=== PATIENT | male | born 1950 | race Caucasian/White ===

== ENCOUNTER 2019-04-19 00:20 | Day surgery (SDC) | payer MEDICARE, SELFPAY ==
[2019-04-13 09:53] VITALS: BMI 24.6
[2019-04-19 08:15] VITALS: BP 135/74; PULSE 87; RESP 20; O2SAT 98; BMI 25.1
[2019-04-19 08:46] LABS: Glucose Point of Care 113 (65-105)
[2019-04-19] MEDS: LACTATED RINGERS 1,000 ML 150 ML IV CONT (08:47)
--- NOTE | 2019-04-19 08:48 | P.PNAN_ITS ---
Anes - Initial Pre Proc Eval Procedure: Operation Date: 04/19/19 09:00 Proposed Procedures p Screening Colonoscopy - Woody Turner MD Date/Time: 04/19/19 08:48 Surgeon: Woody Turner MD Pre Op Diagnosis: Neoplasm Screening Patient Data Age: 69 Gender: M Height: 1.78 m Weight: 79.5 kg Last Vital Signs Pulse 87 04/19/19 08:15 Resp 20 04/19/19 08:15 BP 135/74 04/19/19 08:15 Pulse Ox 98 04/19/19 08:15 Allergies Allergy/AdvReac Type Severity Reaction Status Date / Time shellfish derived AdvReac Mild Diarrhea Verified 04/19/19 08:26 Home Medications Medication Instructions Recorded Confirmed Type atorvastatin 40 mg PO DAILY 04/13/19 04/13/19 History insulin detemir U-100 [Levemir 10 unit SUBCUT DAILY 04/13/19 04/13/19 History FlexTouch U-100 Insuln] latanoprost 1 drp OPHTHALMIC (EYE) DAILY 04/13/19 04/13/19 History lisinopril 10 mg PO DAILY 04/13/19 04/13/19 History metformin 1,000 mg PO BID 04/13/19 04/13/19 History mirabegron [Myrbetriq] 50 mg PO DAILY 04/13/19 04/13/19 History triamterene-hydrochlorothiazid 37 tablet PO DAILY 04/13/19 04/13/19 History Laboratory Tests 04/19/19 08:38 POC Capillary Glucose 113 mg/dl H mg/dl (65-105) Patient hx anesthesia problems: none Family hx anesthesia problems: none [facility] Past Medical History Medical History (Updated 04/18/19 @ 13:36 by Eleno Dangelo DO) Diabetes type 2, controlled History of prostate cancer Hyperlipidemia Hypertension Surgical History Surgical History (Updated 04/18/19 @ 13:36 by Eleno Dangelo DO) History of prostatectomy 2017 Social History Social History Gender identity (if verbalized by the patient): Male Anes - Eval Final PreProcedure Day of Procedure 04/19/19 08:48 Patient weight: overweight Heart: regular rate and rhythm Lungs: clear to auscultation and normal air movement Airway: Mallampati scale class II Neurological: alert and oriented Last oral intake: >/= 8 hours ASA classification: III Emergent: no Anesthetic plan: proceed Anesthesia type and monitoring: general GIVS and standard monitoring Informed Consent: The patient's anesthetic plan and its attendant risks and benefits were discussed with the patient/family/POA. Questions were solicited and answers provided to the satisfaction of the patient/family/POA.
--- NOTE | 2019-04-19 08:58 | P.CONGI_ITS ---
Assessment and Plan Additional Plan This is a 69-year-old white male patient seen in evaluation at the request Dr. Stewart Holt. Patient presents for screening colonoscopy. His current weight appetite bowel movements are normal. He denies abdominal pain he denies any bleeding. His bowel habits regular. Family history noncontributory. There is no history of colon or rectal disease. Past medical history is significant for prostate cancer he has been treated for hypertension, hyperlipidemia, diabetes. History of surgical prostatectomy. Medications include atorvastatin, insulin, lisinopril, metformin, triamterene- hydrochlorothiazide. Allergies to shellfish. Review of systems: significant for poor control bowel habits. Physical exam reveals vital signs stable. HEENT exam unremarkable. He is anicteric. Lungs are clear to auscultation and percussion. Heart is without murmur or extra sounds. Abdominal exam bowel sounds are present soft nontender with no organomegaly. Digital external rectal exam normal. Impression 1. Neoplasia screening. This is advised because of age. Colonoscopy will be performed. 2. History of prostate cancer. 3. Poor control bowel habits. Plan is for fiber supplements to be given. GI Consult Note Consult date/time: 04/19/19 08:58 HPI: Bernardino Sanchez is a 69 year old male [facility] Past Medical History Medical History (Updated 04/18/19 @ 13:36 by Eleno Dangelo DO) Diabetes type 2, controlled History of prostate cancer Hyperlipidemia Hypertension Surgical History Surgical History (Updated 04/18/19 @ 13:36 by Eleno Dangelo DO) History of prostatectomy 2017 Social History Social History Gender identity (if verbalized by the patient): Male Meds Home Medications and Allergies Home Medications Medication Instructions Recorded Confirmed Type atorvastatin 40 mg PO DAILY 04/13/19 04/13/19 History insulin detemir U-100 [Levemir 10 unit SUBCUT DAILY 04/13/19 04/13/19 History FlexTouch U-100 Insuln] latanoprost 1 drp OPHTHALMIC (EYE) DAILY 04/13/19 04/13/19 History lisinopril 10 mg PO DAILY 04/13/19 04/13/19 History metformin 1,000 mg PO BID 04/13/19 04/13/19 History mirabegron [Myrbetriq] 50 mg PO DAILY 04/13/19 04/13/19 History triamterene-hydrochlorothiazid 37 tablet PO DAILY 04/13/19 04/13/19 History Allergies Allergy/AdvReac Type Severity Reaction Status Date / Time shellfish derived AdvReac Mild Diarrhea Verified 04/19/19 08:26 Vital Signs Vital Signs - 24 hr 04/19/19 08:15 Pulse Rate 87 Respiratory Rate 20 Blood Pressure 135/74 Pulse Oximetry 98
[2019-04-19 09:25] VITALS: BP 103/63; PULSE 79; RESP 25; O2SAT 100
[2019-04-19 09:31] LABS: Glucose Point of Care 119 (65-105)
[2019-04-19 09:35] VITALS: BP 120/72; PULSE 71; RESP 22; O2SAT 100
[2019-04-19 09:45] VITALS: BP 115/73; PULSE 67; RESP 17; O2SAT 100
== END 2019-04-19 09:57 | disposition home or self-care (01) ==
PROVIDERS: Visit Provider Internal Medicine Gastroenterology
PROC: 0DJD8ZZ Inspection of Lower Intestinal Tract, Via Natural or Artificial Opening Endoscopic (ICD-10-PCS; CPT 45378; principal; 2019-04-19 09:00)
DX: Z12.11 Encounter for screening for malignant neoplasm of colon (principal); K57.30 Diverticulosis of large intestine without perforation or abscess without bleeding; K64.8 Other hemorrhoids; I10 Essential (primary) hypertension; E78.5 Hyperlipidemia, unspecified; E11.9 Type 2 diabetes mellitus without complications; Z85.46 Personal history of malignant neoplasm of prostate; Z79.84 Long term (current) use of oral hypoglycemic drugs; Z79.4 Long term (current) use of insulin
CPT/HCPCS: G0121; J2704; J7120

== ENCOUNTER 2022-10-03 17:30 | Emergency (ER) | payer MEDICARE, SELFPAY ==
--- NOTE | ~2022-10-03 | CT_ITS ---
EXAMINATION: CT brain wo con INDICATION: Headache COMPARISON: None TECHNIQUE: Standard unenhanced head CT. The dose-length product (DLP) was 681.00 mGy-cm. The mA was a djusted according to patient size. Iterative reconstruction technique was employed. FINDINGS: No acute intraparenchymal hemorrhage. There is an area of low attenuation in the white luis er of the right frontal lobe. The overlying hui matter appears to be mostly intact. There is mild pe riventricular and subcortical hypodensity probably related to small vessel ischemic disease. There is mild prominence of the sulci and ventricles related to cerebral atrophy. Intracranial calcified cere bral atherosclerosis is noted. No extra-axial collections. There is no mass effect or midline shift. The orbits and soft tissues are unremarkable. The visualized sinuses and mastoid air cells are well a erated. IMPRESSION: 1. No acute intracranial abnormality. 2. Area of low attenuation in the right frontal lobe which may reflect an area of prior infarction ho wever, preservation of overlying hui matter could represent an underlying mass. Recommend correlatio n with prior clinical history. Follow-up with nonemergent MRI without and with contrast is recommende d if no history of stroke is present. Reviewed, dictated and finalized at location F. IMPRESSION: 1. No acute intracranial abnormality. 2. Area of low attenuation in the right frontal lobe which may reflect an area of prior infarction however, preservation of overlying hui matter could repres ent an underlying mass. Recommend correlation with prior clinical history. Foll ow-up with nonemergent MRI without and with contrast is recommended if no histo ry of stroke is present.
--- NOTE | ~2022-10-03 | CT_ITS ---
EXAMINATION: CT cervical spine wo con DATE: 10/03/2022 20:03 INDICATION: Head injury TECHNIQUE: Computed tomography (CT) of the cervical spine was performed without intravenous contrast. The dose-length product (DLP) was 204.74 mGy-cm. Automated exposure control and iterative reconstruc tion technique were employed. COMPARISON: None FINDINGS: Bone alignment is normal. There is no fracture. There is mild loss of intervertebral disc s pace height at C5-6. The odontoid process is intact. There is multilevel mild to moderate facet and u ncovertebral joint osteoarthritis. The prevertebral soft tissues are normal. There is a polyp or muco us retention cyst of the left maxillary sinus. IMPRESSION: 1. Mild cervical spondylosis without acute findings. Reviewed, dictated and finalized at location F.
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
[2022-10-03 17:53] VITALS: BP 116/59; PULSE 90; RESP 14; TEMP 36.8; O2SAT 97
--- NOTE | 2022-10-03 17:53 | ECG_ITS ---
Measurements Intervals Childs Rate: 87 P: 40 MD: 141 QRS: 42 QRSD: 107 T: 25 QT: 368 QTc: 444 Interpretive Statements SINUS RHYTHM INTRAVENTRICULAR CONDUCTION DELAY BORDERLINE ECG NO PREVIOUS ECG AVAILABLE FOR COMPARISON Electronically Signed On 10-04-2022 7:31:31 CDT by Ruddy Bai M.D.
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
[2022-10-03 19:09] LABS: Basophils Absolute Auto 0.1 K/mm3 (0.0-0.1); Basophils Percent Auto 0.4 % (0.2-1.2); Eosinophils Absolute Auto 0.1 K/mm3 (0-0.3); Eosinophils Percent Auto 0.4 % (0-4.4); Hematocrit 30.1 % (42.0-52.0); Hemoglobin 10.1 g/dL (14.0-18.0); Immature Granulocyte Absolute 0.17 K/mm3 (0.00-0.031); Lymphocytes Absolute Auto 4.87 K/mm3 (0.9-3.2); Lymphocytes Percent Auto 28.5 % (18.3-44.2); Mean Corpuscular HGB Conc 33.6 g/dl (32-36); Mean Corpuscular Hemoglobin 38.8 pg (26-34); Mean Corpuscular Volume 115.8 fl (80-100); Mean Platelet Volume 9.2 fl (7.4-10.4); Monocytes Absolute Auto 0.8 K/mm3 (0.1-0.6); Monocytes Percent Auto 4.4 % (2.6-8.5); Neutrophils Absolute Auto 11.2 K/mm3 (1.3-6.7); Neutrophils Percent Auto 65.3 % (45.5-73.1); Platelet Count Result 265 k/mm3 (150-375); Red Cell Distribution Width 15.5 % (11.5-14.5); White Blood Count 17.1 K/mm3 (4.5-10.0)
[2022-10-03 19:11] LABS: Appearance Urine Clear (Clear); Bilirubin Urine Negative (Negative); Blood Urine Negative (Negative); Color Urine Yellow (Yellow); Glucose Urine UA 3+ mg/dL (Negative); Ketones Urine Negative (Negative); Leukocyte Esterase Ur Negative LEU/UL (Negative); Nitrate Urine Negative (Negative); Protein Urine Negative (Negative); Urobilinogen Urine 0.2 mg/dL (<2.0)
[2022-10-03] MEDS: TETANUS,DIPHTHERIA,AC PERTUSSIS ADULT (0.5 ML) BOOSTRIX IM (19:11)
[2022-10-03 19:20] LABS: Add Urine Microscopic? NO; Ethanol 58 mg/dL (<10)
[2022-10-03 19:28] LABS: Alanine Aminotransferase 32 U/L (6-50); Albumin Level 4.1 g/dL (3.5-5.1); Alkaline Phosphatase 56 U/L (38-126); Anion Gap 8 mmol/L (8-16); Aspartate Amino Transferase 39 U/L (17-59); Bilirubin,Total 0.3 mg/dL (0.2-1.3); Blood Urea Nitrogen 49 mg/dL (9-20); Calcium 8.6 mg/dL (8.4-10.2); Carbon Dioxide 19 mmol/L (22-30); Chloride 106 mmol/L (98-107); Estimated CRCL calculation 42 ml/min; Estimated Glomerular Filt Rate 60; Glucose 131 mg/dL (65-110); Magnesium 2.3 mg/dL (1.6-2.3); Potassium 3.9 mmol/L (3.4-5.0); Sodium 133 mmol/L (137-145)
[2022-10-03 19:32] LABS: Troponin I < 0.012 ng/mL (0.000-0.034)
[2022-10-03 19:34] LABS: Creatine Kinase 157 U/L (55-170)
[2022-10-03 19:52] LABS: Macrocytosis 1+ (NORMAL); Platelet Estimate Adequate (Adequate); Poikilocytosis 1+ (NORMAL)
[2022-10-03 19:53] LABS: Schistocytes None Seen (NORMAL)
[2022-10-03 21:29] VITALS: BP 109/58; PULSE 93; RESP 16; O2SAT 98
[2022-10-03] MEDS: ONDANSETRON INJ 4 MG/2 ML VIAL IV PUSH (21:29)
[2022-10-03] MEDS: MORPHINE SULFATE (*CRX) 4 MG/ML INJ IV PUSH (21:29)
[2022-10-03 22:39] VITALS: BP 126/74; PULSE 111; RESP 15; TEMP 36.8; O2SAT 97
[2022-10-03 23:15] VITALS: BP 122/59; PULSE 110; RESP 15; O2SAT 96
[2022-10-04] VITALS: BP 113/68; PULSE 106; RESP 14; O2SAT 100
[2022-10-04 00:30] VITALS: BP 112/60; PULSE 101; RESP 16; O2SAT 100
== END 2022-10-04 01:05 | disposition short-term general hospital (02) ==
PROVIDERS: Emergency Provider Student in an Organized Health Care Education/Training Program
DX: S02.5XXA Fracture of tooth (traumatic), initial encounter for closed fracture (principal); S32.020A Wedge compression fracture of second lumbar vertebra, initial encounter for closed fracture; V87.7XXA Person injured in collision between other specified motor vehicles (traffic), initial encounter; E11.9 Type 2 diabetes mellitus without complications; Z79.4 Long term (current) use of insulin; E78.5 Hyperlipidemia, unspecified; I10 Essential (primary) hypertension; Z23 Encounter for immunization
CPT/HCPCS: 36415; 70450; 71260; 72125; 74177; 80053; 80307; 81003; 82550; 83735; 84484; 85025; 90471; 90715; 93005; 96374; 96375; 99285; J2270; J2405; Q9967

== ENCOUNTER 2022-12-03 00:22 | Day surgery (SDC) | payer MEDICARE, SELFPAY ==
[2022-11-29 15:01] VITALS: BMI 22.1
[2022-12-03 06:57] VITALS: BP 107/62; PULSE 72; RESP 18; TEMP 36.2; O2SAT 100; BMI 21.0
[2022-12-03] MEDS: LACTATED RINGERS 1,000 ML 150 ML IV CONT (07:13)
[2022-12-03 07:14] LABS: Glucose Point of Care 126 mg/dl (65-105)
--- NOTE | 2022-12-03 07:19 | SUR.PREOP ---
Patient states he did not take him a.m. Keppra and he usually takes it at 0200. Patient brought his dose with him in case he should take it prior to the procedure. Notified Dr. Sandoval and he states to have patient take his Keppra. Gave Keppra with a few sips of water.
--- NOTE | 2022-12-03 07:31 | WPDANESEPPF ---
Anes - Initial Pre Proc Eval Procedure: Operation Date: 12/03/22 08:00 Proposed Procedures p Colonoscopy - Barry Camara MD Date/Time: 12/03/22 07:31 Surgeon: Barry Camara MD Pre Op Diagnosis: Prominent ileocecal valve Patient Data Age: 72 Gender: M Height: 1.78 m Weight: 66.6 kg Last Vital Signs Temp 97.1 F L 12/03/22 06:57 Pulse 72 12/03/22 06:57 Resp 18 12/03/22 06:57 BP 107/62 12/03/22 06:57 Pulse Ox 100 12/03/22 06:57 O2 Del Method Room Air 12/03/22 06:57 Allergies Allergy/AdvReac Type Severity Reaction Status Date / Time shellfish derived AdvReac Mild Diarrhea Verified 12/03/22 06:55 Home Medications Medication Instructions Recorded Confirmed Type atorvastatin 40 mg tablet 40 mg PO DAILY 04/13/19 12/03/22 History insulin detemir U-100 100 unit/mL 10 unit subcut DAILY 04/13/19 12/03/22 History (3 mL) subcutaneous pen (Levemir FlexTouch U-100 Insulin) latanoprost 0.005 % eye drops 1 drp ophthalmic (eye) DAILY 04/13/19 12/03/22 History lisinopril 10 mg tablet 10 mg PO DAILY 04/13/19 12/03/22 History metformin 1,000 mg tablet 1,000 mg PO BID 04/13/19 12/03/22 History triamterene 37.5 37 tablet PO DAILY 04/13/19 12/03/22 History mg-hydrochlorothiazide 25 mg tablet Tylenol 500 mg PO DAILY PRN Pain 11/29/22 12/03/22 History brimonidine 0.2 %-timolol 0.5 % 1 drp EACH EYE Q12H 11/29/22 12/03/22 History eye drops calcium carbonate 600 mg calcium 600 mg PO DAILY 11/29/22 12/03/22 History (1,500 mg) tablet (Calcium) cholecalciferol (vitamin D3) 25 25 mcg PO DAILY 11/29/22 12/03/22 History mcg (1,000 unit) chewable tablet (Vitamin D3) empagliflozin 25 mg tablet 25 mg PO DAILY 11/29/22 12/03/22 History (Jardiance) folic acid 800 mcg tablet 0.8 mg PO DAILY 11/29/22 12/03/22 History levetiracetam 500 mg tablet 500 mg PO BID 11/29/22 12/03/22 History (Keppra) magnesium 420 mg PO DAILY 11/29/22 12/03/22 History mecobalamin (vitamin B12) 3,000 mg PO DAILY 11/29/22 12/03/22 History melatonin 1 mg tablet 1 mg PO HS PRN insomnia 11/29/22 12/03/22 History awmioids-mbt-FA 0.4 mg-calcium 162 1 tablet PO DAILY 11/29/22 12/03/22 History mg-iron 18 [id number]-hioesm tablet vitamin A-vitamin C-vit E-min 1 tablet PO DAILY 11/29/22 12/03/22 History tablet Laboratory Tests 12/03/22 07:11 POC Capillary Glucose 126 H mg/dl (65-105) Patient hx anesthesia problems: none Family hx anesthesia problems: none Results Review: All pre-operative results and documents have been reviewed as part of the pre-operative evaluation. [facility] Past Medical History Medical History (Updated 10/05/22 @ 00:00 by Gordy Agee) Diabetes type 2, controlled History of prostate cancer Hyperlipidemia Hypertension Surgical History Surgical History (Updated 04/18/19 @ 13:36 by Eleno Dangelo DO) History of prostatectomy 2017 Social History Social History Living arrangements: alone Gender identity (if verbalized by the patient): Male Spiritual care concerns: No Anes - Eval Final PreProcedure Day of Procedure 12/03/22 07:31 Patient weight: normal Heart: regular rate and rhythm Lungs: clear to auscultation Airway: Mallampati scale class II Neurological: alert and oriented Last oral intake: >/= 8 hours ASA classification: III Emergent: no Anesthetic plan: proceed Anesthesia type and monitoring: general GIVS and standard monitoring Results Review: All pre-operative results and documents have been reviewed as part of the pre-operative evaluation. Informed Consent: The patient's anesthetic plan and its attendant risks and benefits were discussed with the patient/family/POA. Questions were solicited and answers provided to the satisfaction of the patient/family/POA.
--- NOTE | 2022-12-03 07:55 | PM.HPGS ---
History of Present Illness History of Present Illness Consent: Risks, benefits, and alternatives have been discussed and questions answered. Patient agrees to proceed with procedure. Chief complaint: Prominent ileocecal valve Narrative: Bernardino Sanchez is a 72 year old male here for colonoscopy, last one 2021, had recent imaging study that showed prominent ICV Review of Systems Constitutional: Constitutional: Denies headache(s) and Denies weakness Eyes: Eyes: Denies blurry vision ENT: Reports Normal hearing present, Denies headache(s) and Denies neck pain Cardiovascular: Cardiovascular: Denies chest pain and Denies dyspnea Respiratory: Respiratory: Denies dyspnea Gastrointestinal: Gastrointestinal: Reports no additional gastrointestinal complaints Genitourinary: Genitourinary: Denies dysuria Musculoskeletal: Musculoskeletal: Reports back pain Integumentary/Breasts: Skin/Breast: Denies dry skin Neurologic: Reports Normal hearing present, Denies headache(s) and Denies weakness Psychiatric: Psychiatric: Denies anxiety Endocrine: Endocrine: Denies change in body appearance Hematologic/Lymphatic: Hematologic/Lymphatic: Denies easy bleeding Allergic/Immunologic: Allergic/Immunologic: Denies urticaria PMFSH Past Medical History Medical History (Updated 12/03/22 @ 07:57 by Barry Camara MD) Abnormal CT scan, colon Diabetes type 2, controlled History of prostate cancer Hyperlipidemia Hypertension Surgical History Surgical History (Updated 04/18/19 @ 13:36 by Eleno Dangelo DO) History of prostatectomy 2016 Social History Social History Living arrangements: alone Gender identity (if verbalized by the patient): Male Spiritual care concerns: No Meds Home Medications and Allergies Home Medications Medication Instructions Recorded Confirmed Type atorvastatin 40 mg tablet 40 mg PO DAILY 04/13/19 12/03/22 History insulin detemir U-100 100 unit/mL 10 unit subcut DAILY 04/13/19 12/03/22 History (3 mL) subcutaneous pen (Levemir FlexTouch U-100 Insulin) latanoprost 0.005 % eye drops 1 drp ophthalmic (eye) DAILY 04/13/19 12/03/22 History lisinopril 10 mg tablet 10 mg PO DAILY 04/13/19 12/03/22 History metformin 1,000 mg tablet 1,000 mg PO BID 04/13/19 12/03/22 History triamterene 37.5 37 tablet PO DAILY 04/13/19 12/03/22 History mg-hydrochlorothiazide 25 mg tablet Tylenol 500 mg PO DAILY PRN Pain 11/29/22 12/03/22 History brimonidine 0.2 %-timolol 0.5 % 1 drp EACH EYE Q12H 11/29/22 12/03/22 History eye drops calcium carbonate 600 mg calcium 600 mg PO DAILY 11/29/22 12/03/22 History (1,500 mg) tablet (Calcium) cholecalciferol (vitamin D3) 25 25 mcg PO DAILY 11/29/22 12/03/22 History mcg (1,000 unit) chewable tablet (Vitamin D3) empagliflozin 25 mg tablet 25 mg PO DAILY 11/29/22 12/03/22 History (Jardiance) folic acid 800 mcg tablet 0.8 mg PO DAILY 11/29/22 12/03/22 History levetiracetam 500 mg tablet 500 mg PO BID 11/29/22 12/03/22 History (Keppra) magnesium 420 mg PO DAILY 11/29/22 12/03/22 History mecobalamin (vitamin B12) 3,000 mg PO DAILY 11/29/22 12/03/22 History melatonin 1 mg tablet 1 mg PO HS PRN insomnia 11/29/22 12/03/22 History dwmhsodt-csr-EQ 0.4 mg-calcium 162 1 tablet PO DAILY 11/29/22 12/03/22 History mg-iron 18 ik-ltziupw-cqdpdo tablet vitamin A-vitamin C-vit E-min 1 tablet PO DAILY 11/29/22 12/03/22 History tablet Allergies Allergy/AdvReac Type Severity Reaction Status Date / Time shellfish derived AdvReac Mild Diarrhea Verified 12/03/22 06:55 Vital Signs Vital Signs - 24 hr 12/03/22 06:57 Temperature 97.1 F L Pulse Rate 72 Respiratory Rate 18 Blood Pressure 107/62 Pulse Oximetry 100 Oxygen Delivery Room Air Exam Const: General: comfortable and no acute distress HENMT: Face/Nose/Sinus: Normal nares present Eyes: General: appearance normal, both eyes and all related structures Neck: N
[2022-12-03 08:20] VITALS: BP 120/62; PULSE 59; RESP 21; O2SAT 100
[2022-12-03 08:30] VITALS: BP 102/58; PULSE 72; RESP 20; O2SAT 100
[2022-12-03 08:32] LABS: Glucose Point of Care 104 mg/dl (65-105)
[2022-12-03 08:40] VITALS: BP 108/56; PULSE 68; RESP 20; O2SAT 100
== END 2022-12-03 08:48 | disposition home or self-care (01) ==
PROVIDERS: Visit Provider Internal Medicine Gastroenterology
PROC: 0DJD8ZZ Inspection of Lower Intestinal Tract, Via Natural or Artificial Opening Endoscopic (ICD-10-PCS; CPT 45378; principal; 2022-12-03 08:00)
DX: K57.30 Diverticulosis of large intestine without perforation or abscess without bleeding (principal); K64.8 Other hemorrhoids; E11.9 Type 2 diabetes mellitus without complications; E78.5 Hyperlipidemia, unspecified; I10 Essential (primary) hypertension; Z79.4 Long term (current) use of insulin; Z79.84 Long term (current) use of oral hypoglycemic drugs; Z85.46 Personal history of malignant neoplasm of prostate
CPT/HCPCS: G0121; 82948; J2371; J2704; J7120

== ENCOUNTER 2023-03-13 10:26 | Emergency (ER) | payer MEDICARE, SELFPAY ==
--- NOTE | 2023-03-13 10:28 | ED.WOUNDLAC ---
HPI - Wound/Laceration General Chief Complaint: Wound/Laceration Stated Complaint: L HAND LACERATION Time Seen by Provider: 03/13/23 10:50 Source: patient and RN notes reviewed Mode of arrival: ambulatory Limitations: no limitations History of Present Illness HPI narrative: 73-year-old male presents concern for laceration to his left hand. Reports he cut it with a box sealing machine catcher prior to arrival. He denies decreased strength, sensation, range of motion in the hand digits. He is up-to-date on his tetanus vaccination Related Data Home Medications Medication Instructions Recorded Confirmed atorvastatin 40 mg tablet 40 mg PO DAILY 04/13/19 03/13/23 insulin detemir U-100 100 unit/mL 10 unit subcut DAILY 04/13/19 03/13/23 (3 mL) subcutaneous pen (Levemir FlexTouch U-100 Insulin) latanoprost 0.005 % eye drops 1 drp ophthalmic (eye) DAILY 04/13/19 03/13/23 lisinopril 10 mg tablet 10 mg PO DAILY 04/13/19 03/13/23 metformin 1,000 mg tablet 1,000 mg PO BID 04/13/19 03/13/23 triamterene 37.5 37 tablet PO DAILY 04/13/19 03/13/23 mg-hydrochlorothiazide 25 mg tablet Tylenol 500 mg PO DAILY PRN Pain 11/29/22 03/13/23 brimonidine 0.2 %-timolol 0.5 % 1 drp EACH EYE Q12H 11/29/22 03/13/23 eye drops calcium carbonate 600 mg calcium 600 mg PO DAILY 11/29/22 03/13/23 (1,500 mg) tablet (Calcium) cholecalciferol (vitamin D3) 25 25 mcg PO DAILY 11/29/22 03/13/23 mcg (1,000 unit) chewable tablet (Vitamin D3) empagliflozin 25 mg tablet 25 mg PO DAILY 11/29/22 03/13/23 (Jardiance) folic acid 800 mcg tablet 0.8 mg PO DAILY 11/29/22 03/13/23 levetiracetam 500 mg tablet 500 mg PO BID 11/29/22 03/13/23 (Keppra) magnesium 420 mg PO DAILY 11/29/22 03/13/23 mecobalamin (vitamin B12) 3,000 mg PO DAILY 11/29/22 03/13/23 melatonin 1 mg tablet 1 mg PO HS PRN insomnia 11/29/22 03/13/23 gikzliaa-sbt-XV 0.4 mg-calcium 162 1 tablet PO DAILY 11/29/22 03/13/23 mg-iron 18 aq-ohudvgo-gmhnoy tablet vitamin A-vitamin C-vit E-min 1 tablet PO DAILY 11/29/22 03/13/23 tablet Allergies Allergy/AdvReac Type Severity Reaction Status Date / Time shellfish derived AdvReac Mild Diarrhea Verified 03/13/23 10:39 Review of Systems Review of Systems: CONSTITUTIONAL: Denies malaise, chills, sweats, or fever. SKIN: Reports laceration to the left hand MUSCULOSKELETAL: Denies muscle skeletal pain NEUROLOGIC: Denies numbness, weakness All systems reviewed & are unremarkable except as noted in HPI and below PMFSH Past Medical History Medical History (Updated 03/13/23 @ 11:03 by Jannet Marx NP) Abnormal CT scan, colon Diabetes type 2, controlled History of prostate cancer Hyperlipidemia Hypertension Surgical History Surgical History (Updated 04/18/19 @ 13:36 by Eleno Dangelo DO) History of prostatectomy 2017 Social History Social History Living arrangements: alone Gender identity (if verbalized by the patient): Male Spiritual care concerns: No Comments At time of signature, agree with nursing past medical, surgical, social and family history. There is no relevant family history pertinent to the presenting complaint Exam Narrative: GENERAL: Well-appearing, well-nourished, and in no acute distress. HEAD: Normocephalic EYES: PERRLA, conjunctivae clear NECK: Supple. CHEST: Speaks in full sentences. No respiratory distress. HEART: Regular rate and rhythm. Normal and equal peripheral pulses. EXTREMITIES: Left hand and digits of hand have normal strength and sensation. 5/5 strength with digit flexion, extension. Range of motion normal. Normal digital cascade with flexion of fingers, median, ulnar and radial nerve intact. Normal sensation of each side of finger. No scissoring. Normal thumb opposition. Good capillary refill and radial pulse. Distal capillary refill less than 3 seconds. SKIN: [place], dry, intact, pink. 1 cm slightly curved laceration through the dermis noted on the palmar aspect of the left hand beneath
[2023-03-13 10:41] VITALS: BP 119/68; PULSE 64; RESP 16; TEMP 36.4; O2SAT 100
== END 2023-03-13 11:22 | disposition home or self-care (01) ==
PROVIDERS: Emergency Provider Nurse Practitioner
DX: S61.412A Laceration without foreign body of left hand, initial encounter (principal); W26.8XXA Contact with other sharp object(s), not elsewhere classified, initial encounter; Z79.4 Long term (current) use of insulin; Z79.84 Long term (current) use of oral hypoglycemic drugs; E11.9 Type 2 diabetes mellitus without complications; E78.5 Hyperlipidemia, unspecified; I10 Essential (primary) hypertension; Z85.46 Personal history of malignant neoplasm of prostate; Z90.79 Acquired absence of other genital organ(s)
CPT/HCPCS: 12001; 99212; G0463

== ENCOUNTER 2023-10-19 08:02 | Emergency (ER) | payer MEDICARE, SELFPAY ==
[2023-10-19 08:12] VITALS: BP 104/61; PULSE 85; RESP 16; TEMP 36.7; O2SAT 100
--- NOTE | 2023-10-19 08:21 | ED.WOUNDLAC ---
HPI - Wound/Laceration General Chief Complaint: Wound/Laceration Stated Complaint: L FOREARM LACERATION Time Seen by Provider: 10/19/23 08:06 Source: patient Mode of arrival: ambulatory Limitations: no limitations History of Present Illness HPI narrative: Bernardino is a 73-year-old male patient presenting to the clinic today with complaints of a skin tear to the left upper forearm/elbow. He reports this happened 2-3 days ago while he was at the [facility]. States he bumped up against a door and this caused a small skin tear with bleeding. He reports that the bleeding eventually did stop. Is concerned about infection. Tetanus was updated in 2022. Related Data Home Medications Medication Instructions Recorded Confirmed atorvastatin 40 mg tablet 40 mg PO DAILY 04/13/19 03/13/23 insulin detemir U-100 100 unit/mL 10 unit subcut DAILY 04/13/19 03/13/23 (3 mL) subcutaneous pen (Levemir FlexTouch U-100 Insulin) latanoprost 0.005 % eye drops 1 drp ophthalmic (eye) DAILY 04/13/19 03/13/23 lisinopril 10 mg tablet 10 mg PO DAILY 04/13/19 03/13/23 metformin 1,000 mg tablet 1,000 mg PO BID 04/13/19 03/13/23 triamterene 37.5 37 tablet PO DAILY 04/13/19 03/13/23 mg-hydrochlorothiazide 25 mg tablet Tylenol 500 mg PO DAILY PRN Pain 11/29/22 03/13/23 brimonidine 0.2 %-timolol 0.5 % 1 drp EACH EYE Q12H 11/29/22 03/13/23 eye drops calcium carbonate (Calcium 600) 600 mg PO DAILY 11/29/22 03/13/23 cholecalciferol (vitamin D3) 25 25 mcg PO DAILY 11/29/22 03/13/23 mcg (1,000 unit) chewable tablet (Vitamin D3) empagliflozin 25 mg tablet 25 mg PO DAILY 11/29/22 03/13/23 (Jardiance) folic acid 800 mcg tablet 0.8 mg PO DAILY 11/29/22 03/13/23 levetiracetam 500 mg tablet 500 mg PO BID 11/29/22 03/13/23 (Keppra) magnesium 420 mg PO DAILY 11/29/22 03/13/23 mecobalamin (vitamin B12) 3,000 mg PO DAILY 11/29/22 03/13/23 melatonin 1 mg tablet 1 mg PO HS PRN insomnia 11/29/22 03/13/23 xczqjivc-qpj-SN 0.4 mg-calcium 162 1 tablet PO DAILY 11/29/22 03/13/23 mg-iron 18 po-xbzwwvi-rzrbwl tablet vitamin A-vitamin C-vit E-min 1 tablet PO DAILY 11/29/22 03/13/23 tablet Allergies Allergy/AdvReac Type Severity Reaction Status Date / Time shellfish derived AdvReac Mild Diarrhea Verified 10/19/23 08:20 Review of Systems Review of Systems: Pertinent positives per HPI. Patient denies any fever, chills, rash, headache, visual changes, dizziness, cough, runny nose, sore throat, shortness of breath, chest pain, palpitations, nausea, vomiting, diarrhea, constipation, abdominal pain, or any urinary issues. [facility] Past Medical History Medical History Abnormal CT scan, colon Diabetes type 2, controlled History of prostate cancer Hyperlipidemia Hypertension Surgical History Surgical History History of prostatectomy 2017 Social History Social History Living arrangements: alone Gender identity (if verbalized by the patient): Male Spiritual care concerns: No Comments At the time of my signature, I reviewed and agree with the nursing past medical, surgical, social, and family history. There is no relevant family history pertinent to the patient complaint. Exam Narrative: General: Well-developed, well nourished, in no apparent distress Head: Normocephalic, atraumatic. Cardio: Regular rate and rhythm, s1 and s2 normal, no murmur appreciated. Resp: Clear to auscultation bilaterally, no rhonchi, rales, wheezing or rubs. Integumentary: [place], warm, and dry, skin tear with complete loss of flap measuring 2 cm in length and approximately 0.25 cm in width. No redness or erythema. Does have bruising surrounding the skin tear with mild tenderness to palpation Course Course Emergency Course: Portions of this record may have been created with voice recognition
== END 2023-10-19 08:30 | disposition home or self-care (01) ==
PROVIDERS: Emergency Provider Nurse Practitioner Family; PCP Emergency Medicine
DX: S51.012A Laceration without foreign body of left elbow, initial encounter (principal); W22.8XXA Striking against or struck by other objects, initial encounter; E11.9 Type 2 diabetes mellitus without complications; I10 Essential (primary) hypertension; E78.5 Hyperlipidemia, unspecified; Z85.46 Personal history of malignant neoplasm of prostate; Z90.79 Acquired absence of other genital organ(s)
CPT/HCPCS: 99212; G0463

== ENCOUNTER 2024-01-16 08:05 | Emergency (ER) | payer MEDICARE, SELFPAY ==
[2024-01-16 08:18] VITALS: BP 119/59; PULSE 77; RESP 18; TEMP 36.1; O2SAT 100
--- NOTE | 2024-01-16 08:30 | ED_ITS ---
HPI - Skin/Abscess/Foreign Bdy General Chief complaint: Extremity Injury, Upper Stated complaint: Injured Right Arm Time Seen by Provider: 01/16/24 08:18 Source: patient and RN notes reviewed Mode of arrival: ambulatory Limitations: no limitations History of Present Illness HPI narrative: Patient presents today with a small skin tear to the distal right forearm that was sustained yesterday when he was putting a case of water in his car. States he trimmed the skin tear after the injury. He has clean the area and dressed it prior to arrival. Up-to-date on tetanus vaccine. Related Data Home Medications Medication Instructions Recorded Confirmed atorvastatin 40 mg tablet 40 mg PO DAILY 04/13/19 01/16/24 insulin detemir U-100 100 unit/mL 10 unit subcut DAILY 04/13/19 01/16/24 (3 mL) subcutaneous pen (Levemir FlexTouch U-100 Insulin) latanoprost 0.005 % eye drops 1 drp ophthalmic (eye) DAILY 04/13/19 01/16/24 lisinopril 10 mg tablet 10 mg PO DAILY 04/13/19 01/16/24 metformin 1,000 mg tablet 1,000 mg PO BID 04/13/19 01/16/24 triamterene 37.5 37 tablet PO DAILY 04/13/19 01/16/24 mg-hydrochlorothiazide 25 mg tablet Tylenol 500 mg PO DAILY PRN Pain 11/29/22 01/16/24 brimonidine 0.2 %-timolol 0.5 % 1 drp EACH EYE Q12H 11/29/22 01/16/24 eye drops calcium carbonate (Calcium 600) 600 mg PO DAILY 11/29/22 01/16/24 cholecalciferol (vitamin D3) 25 25 mcg PO DAILY 11/29/22 01/16/24 mcg (1,000 unit) chewable tablet (Vitamin D3) empagliflozin 25 mg tablet 25 mg PO DAILY 11/29/22 01/16/24 (Jardiance) folic acid 800 mcg tablet 0.8 mg PO DAILY 11/29/22 01/16/24 levetiracetam 500 mg tablet 500 mg PO BID 11/29/22 01/16/24 (Keppra) magnesium 420 mg PO DAILY 11/29/22 01/16/24 mecobalamin (vitamin B12) 3,000 mg PO DAILY 11/29/22 01/16/24 melatonin 1 mg tablet 1 mg PO HS PRN insomnia 11/29/22 01/16/24 qeuruvef-hvy-OF 0.4 mg-calcium 162 1 tablet PO DAILY 11/29/22 01/16/24 mg-iron 18 bu-lpuosaf-jjqnha tablet vitamin A-vitamin C-vit E-min 1 tablet PO DAILY 11/29/22 01/16/24 tablet Allergies Allergy/AdvReac Type Severity Reaction Status Date / Time shellfish derived AdvReac Mild Diarrhea Verified 01/16/24 08:16 Review of Systems Review of Systems: CONSTITUTIONAL: Denies body aches, fever, chills, or sweats. EYES: Denies visual changes, redness, or discharge. ENT: Denies rhinorrhea, congestion, sore throat, or otalgia. CARDIOVASCULAR: Denies chest pain, palpitations, or edema. RESPIRATORY: Denies cough or dyspnea. GASTROINTESTINAL: Denies abdominal pain, nausea, vomiting, or diarrhea. GENITOURINARY: Denies dysuria or hematuria. SKIN:+ skin tear MUSCULOSKELETAL: Denies back pain, joint pain, or myalgia. NEUROLOGIC: Denies headache, numbness, tingling, or weakness. PSYCH: Denies depression or anxiety. [facility] Past Medical History Medical History Abnormal CT scan, colon Diabetes type 2, controlled History of prostate cancer Hyperlipidemia Hypertension Surgical History Surgical History History of prostatectomy 2016 Social History Social History Living arrangements: alone Gender identity (if verbalized by the patient): Male Spiritual care concerns: No Comments At time of signature, I have reviewed and agree with nursing past medical, surgical, social and family history unless otherwise noted. Please see nursing chart for further information. There is no relevant family history pertinent to the presenting complaint Exam Narrative: GENERAL: Well-appearing, well-nourished, and in no acute distress. HEAD: Normocephalic, atraumatic. EYES: EOMI. No redness or drainage. Conjunctivae normal. ENT: Mucous membranes pink and moist. NECK: Normal AROM. CHEST: No respiratory distress. EXTREMITIES: Normal range of motion. No edema. SKIN: Warm, dry, no rash. Capillary refill normal. Normal skin turgor. Approximately 1 x 1 cm triangular shaped very superficial skin tear to the distal right forearm. No active bleeding. No surrounding edema, erythema. Distal sensation intact. Capillary refill normal. Full range of motion. NEURO: No focal deficits. Alert and oriented x3. Gait steady. PSYCH: Normal affect. No signs of depression or anxiety. Course Course Level of Care: Express Care Visit Vital Signs Vital signs: Vital Signs Temperature 97.0 F L 01/16/24 08:18 Pulse Rate 77 01/16/24 08:18 Respiratory Rate 18 01/16/24 08:18 Blood Pressure 119/59 L 01/16/24 08:18 Pulse Oximetry 100 01/16/24 08:18 Oxygen Delivery Room Air 01/16/24 08:18 Temperature 97.0 F L 01/16/24 08:18 Pulse Rate 77 01/16/24 08:18 Respiratory Rate 18 01/16/24 08:18 Blood Pressure 119/59 L 01/16/24 08:18 Pulse Oximetry 100 01/16/24 08:18 Oxygen Delivery Room Air 01/16/24 08:18 Review MDM - Skin/Abscess/Foreign Bdy MDM Narrative Medical decision making narrative: Patient has sustained a skin tear. Dressed with nonadherent dressing. Care instructions given. Anticipatory guidance given. Differential Diagnosis Differential diagnosis: Likely cellulitis and other (Skin tear, skin avulsion) Critical Care Time Critical Care Time Critical Care Time: No Discharge Plan Discharge Clinical Impression: Skin tear of right forearm without complication Qualifiers: Encounter type: initial encounter Qualified Code(s): S51.811A - Laceration without foreign body of right forearm, initial encounter Patient Disposition: Home, Self-Care Condition: Stable Instructions: Skin Tear (ED) Additional Instructions: Please wash your skin tear area daily with soap and water. Apply Vaseline or Neosporin and keep covered until scabbed over or healed. Monitor for any signs of infection such as redness, swelling, increased pain or drainage, and see your doctor if you note any. Prescriptions: No Action atorvastatin 40 mg tablet 40 mg PO DAILY metformin 1,000 mg tablet 1,000 mg PO BID lisinopril 10 mg tablet 10 mg PO DAILY Levemir FlexTouch U100 Insulin 100 unit/mL (3 mL) insulin pen 10 unit subcut DAILY Rx Instructions: 10 unit subcutaneously triamterene-hydrochlorothiazid 37.5-25 mg tablet 37 tablet PO DAILY latanoprost 0.005 % Drops 1 drp OPHTHALMIC (EYE) DAILY levetiracetam [Keppra] 500 mg Tablet 500 mg PO BID calcium carbonate [Calcium 600] 600 mg calcium (1,500 mg) Tablet 600 mg PO DAILY folic acid 800 mcg Tablet 0.8 mg PO DAILY Ocuvite Tablet 1 tablet PO DAILY melatonin 1 mg Tablet 1 mg PO HS PRN (Reason: insomnia) Centrum 0.4-162-18 mg Tablet 1 tablet PO DAILY brimonidine-timolol 0.2-0.5 % Drops 1 drp EACH EYE Q12H cholecalciferol (vitamin D3) [Vitamin D3] 25 mcg (1,000 unit) Tablet,Chewable 25 mcg PO DAILY Jardiance 25 mg Tablet 25 mg PO DAILY Tylenol 500 mg PO DAILY PRN (Reason: Pain) magnesium 420 mg PO DAILY mecobalamin (vitamin B12) 3,000 mg PO DAILY Follow-up/Referrals: Jose Mckoy MD [Primary Care Provider] - Time of Disposition: 08:36
== END 2024-01-16 08:43 | disposition home or self-care (01) ==
PROVIDERS: Emergency Provider Nurse Practitioner; PCP Emergency Medicine
DX: S51.811A Laceration without foreign body of right forearm, initial encounter (principal); X58.XXXA Exposure to other specified factors, initial encounter; E11.9 Type 2 diabetes mellitus without complications; I10 Essential (primary) hypertension; E78.5 Hyperlipidemia, unspecified; Z85.46 Personal history of malignant neoplasm of prostate; Z90.79 Acquired absence of other genital organ(s)
CPT/HCPCS: 99212; G0463

== ENCOUNTER 2024-02-10 19:32 | Emergency (ER) | payer MEDICARE, SELFPAY ==
[2024-02-10 20:41] VITALS: BP 120/72; PULSE 101; RESP 16; TEMP 36.5; O2SAT 97
[2024-02-10 20:49] LABS: Glucose Point of Care 177 mg/dl (65-105)
[2024-02-11 02:53] VITALS: BP 95/54; PULSE 84; RESP 16; TEMP 36.4; O2SAT 100
[2024-02-11 03:55] LABS: Glucose Point of Care 185 mg/dl (65-105)
--- NOTE | 2024-02-11 07:31 | PC.NURSE ---
pt left due to wait time.
== END 2024-02-11 08:44 | disposition left against medical advice (07) ==
PROVIDERS: Emergency Provider Emergency Medicine; PCP Emergency Medicine
DX: E11.9 Type 2 diabetes mellitus without complications (principal); Z53.21 Procedure and treatment not carried out due to patient leaving prior to being seen by health care provider
CPT/HCPCS: 82948; 99199

== ENCOUNTER 2024-04-23 09:45 | Emergency (ER) | payer MEDICARE, SELFPAY ==
[2024-04-23 09:58] VITALS: BP 106/70; PULSE 119; RESP 20; TEMP 36.5; O2SAT 100
--- NOTE | 2024-04-23 10:00 | ED_ITS ---
HPI - General Adult General Chief complaint: Recheck/Abnormal Lab/Rx Stated complaint: Diabetic help Source: patient Mode of arrival: ambulatory Limitations: no limitations History of Present Illness HPI narrative: 74-year-old diabetic male presented for diabetes supplies and refill of Lantus. He states he has not been testing his blood sugar levels or taking his injectable medicine for at least 1 month. Patient says he does not want to continue with his established physician, and has not contacted them for the supplies. Patient ate toast and coffee this morning, and on arrival glucose is 391. Patient denies chest pain, n/v/d/f/c. Related Data Home Medications ?Medication ?Instructions ?Recorded ?Confirmed ?Last Taken ?Type atorvastatin 40 mg tablet 40 mg PO DAILY 04/13/19 04/23/24 04/17/19 History insulin detemir U-100 100 unit/mL 10 unit subcut DAILY 04/13/19 01/16/24 04/17/19 History (3 mL) subcutaneous pen (Levemir FlexTouch U-100 Insulin) latanoprost 0.005 % eye drops 1 drp ophthalmic (eye) DAILY 04/13/19 01/16/24 04/17/19 History lisinopril 10 mg tablet 10 mg PO DAILY 04/13/19 04/23/24 04/17/19 History metformin 1,000 mg tablet 1,000 mg PO BID 04/13/19 04/23/24 04/17/19 History triamterene 37.5 37 tablet PO DAILY 04/13/19 01/16/24 04/17/19 History mg-hydrochlorothiazide 25 mg tablet Tylenol 500 mg PO DAILY PRN Pain 11/29/22 04/23/24 Unknown History brimonidine 0.2 %-timolol 0.5 % 1 drp EACH EYE Q12H 11/29/22 01/16/24 Unknown History eye drops calcium carbonate (Calcium 600) 600 mg PO DAILY 11/29/22 01/16/24 Unknown History cholecalciferol (vitamin D3) 25 25 mcg PO DAILY 11/29/22 04/23/24 Unknown History mcg (1,000 unit) chewable tablet (Vitamin D3) empagliflozin 25 mg tablet 25 mg PO DAILY 11/29/22 01/16/24 Unknown History (Jardiance) folic acid 800 mcg tablet 0.8 mg PO DAILY 11/29/22 04/23/24 Unknown History levetiracetam 500 mg tablet 500 mg PO BID 11/29/22 01/16/24 Unknown History (Keppra) magnesium 420 mg PO DAILY 11/29/22 04/23/24 Unknown History mecobalamin (vitamin B12) 3,000 mg PO DAILY 11/29/22 04/23/24 Unknown History melatonin 1 mg tablet 1 mg PO HS PRN insomnia 11/29/22 01/16/24 Unknown History meqwkzob-iwb-RD 0.4 mg-calcium 162 1 tablet PO DAILY 11/29/22 04/23/24 Unknown History mg-iron 18 we-eenhhll-yngztf tablet vitamin A-vitamin C-vit E-min 1 tablet PO DAILY 11/29/22 04/23/24 Unknown History tablet methazolamide 50 mg tablet 50 mg PO BID 04/23/24 04/23/24 Unknown History valacyclovir 500 mg tablet 500 mg PO DAILY 04/23/24 04/23/24 Unknown History Allergies Allergy/AdvReac Type Severity Reaction Status Date / Time shellfish derived AdvReac Mild Diarrhea Verified 04/23/24 09:54 Review of Systems Review of Systems: CONSTITUTIONAL: Denies body aches, fever, chills, or sweats. EYES: Denies visual changes, redness, or discharge. ENT: Denies rhinorrhea, congestion, sore throat, or otalgia. CARDIOVASCULAR: Denies chest pain, palpitations, or edema. RESPIRATORY: Denies cough or dyspnea. GASTROINTESTINAL: Denies abdominal pain, nausea, vomiting, or diarrhea. GENITOURINARY: Denies dysuria or hematuria. SKIN: Denies rash, itching, or wounds. MUSCULOSKELETAL: Denies back pain, joint pain, or myalgia. NEUROLOGIC: Denies headache, numbness, tingling, or weakness. PSYCH: reports anxiety. All systems reviewed & are unremarkable except as noted in HPI and below PMFSH Past Medical History Medical History Abnormal CT scan, colon History of prostate cancer Diabetes type 2, controlled Hypertension Hyperlipidemia Surgical History Surgical History History of prostatectomy 2016 Social History Social History Living arrangements: alone Gender identity (if verbalized by the patient): Male Spiritual care concerns: No Comments At time of signature, I have reviewed and agree with nursing past medical, surgical, social and family history unless otherwise noted. Please see nursing chart for further information. There is no relevant family history pertinent to the presenting complaint Exam Narrative: GENERAL: Well-appearing EYES: EOMI. No redness or drainage. Conjunctivae normal. ENT: Mucous membranes pink and moist. NECK: Normal AROM. CHEST: No respiratory distress. Clear to auscultation. HEART: tachycardic and regular rhythm. Normal peripheral pulses. ABDOMEN: Soft, nontender, nondistended, normal active bowel sounds. SKIN: Warm, dry, no rash. Capillary refill normal. Normal skin turgor. NEURO: No focal deficits. Alert and oriented x3. Gait steady. PSYCH: appears anxious Course Course Emergency Course: Patient is aware of diagnosis, understands and agrees to treatment plan. Anticipatory guidance given. Patient agrees to follow-up as directed and is aware of reasons to seek care at the emergency department. Portions of this record may have been created with voice recognition software Level of Care: Express Care Visit Vital Signs Vital signs: Vital Signs Temperature 97.7 F 04/23/24 09:58 Pulse Rate 119 H 04/23/24 09:58 Respiratory Rate 20 04/23/24 09:58 Blood Pressure 106/70 04/23/24 09:58 Pulse Oximetry 100 04/23/24 09:58 Oxygen Delivery Room Air 04/23/24 09:58 Temperature 97.7 F 04/23/24 09:58 Pulse Rate 119 H 04/23/24 09:58 Respiratory Rate 20 04/23/24 09:58 Blood Pressure 106/70 04/23/24 09:58 Pulse Oximetry 100 04/23/24 09:58 Oxygen Delivery Room Air 04/23/24 09:58 Medical Decision Making MDM Narrative Medical decision making narrative: Discussed physical exam findings; BS 391. Advised at length the importance of establishing with a pcp for diabetic monitoring and supplies. Provided pt with a list of pcp's. Advised supportive measures and signs/symptoms to go to the ER. Pt is appropriate for outpt treatment and f/u. Differential Diagnosis Differential Diagnosis: diabetes, hyperglycemia, hypoglycemia Vital Signs Vital Signs: Vital Signs Temperature 97.7 F 04/23/24 09:58 Pulse Rate 119 H 04/23/24 09:58 Respiratory Rate 20 04/23/24 09:58 Blood Pressure 106/70 04/23/24 09:58 Pulse Oximetry 100 04/23/24 09:58 Oxygen Delivery Room Air 04/23/24 09:58 Temperature 97.7 F 04/23/24 09:58 Pulse Rate 119 H 04/23/24 09:58 Respiratory Rate 20 04/23/24 09:58 Blood Pressure 106/70 04/23/24 09:58 Pulse Oximetry 100 04/23/24 09:58 Oxygen Delivery Room Air 04/23/24 09:58 reviewed Lab Data Labs: Lab Results 04/23/24 Range/Units 09:59 POC Capillary Glucose 391 H (65-105) mg/dl Discharge Plan Discharge Clinical Impression: Encounter for medication refill, Hyperglycemia, Diabetes Patient Disposition: Home, Self-Care Condition: Stable Instructions: Antibiotic Form, Type 2 Diabetes in the Older Adult (ED) Additional Instructions: [facility] does not routinely refill any medications. You must establish with a primary care provider for your diabetic supplies and medications. The prescriptions may require prior authorization and may not be filled. You may be eligible for a free meter * You can call for more information on OneTouch programs * You can check your eligibility for [employer] Automatic Savings Program monitor for : --low blood sugar symptoms: Shakiness Sweating, Dizziness, Confusion, Headache, Blurred vision Seizures --high blood sugar symptoms: High blood sugar levels (above 180 mg/dL) Increased thirst Frequent urination Extreme hunger Fatigue Blurred vision Nausea and vomiting Confusion and irritability? Establish and Follow up with a primary care provider in 1 week Go to the ER for worsening symptoms or concerns Patient Language: Kinyarwanda Prescriptions: New Levemir FlexTouch U100 Insulin 100 unit/mL (3 mL) insulin pen 12 unit subcut HS Qty: 15 0RF (DME) blood-glucose meter [OneTouch Verio Reflect Meter] Misc See Rx Instructions .Route Qty: 1 0RF Rx Instructions: Check glucose level before breakfast and bedtime (DME) OneTouch Verio test strips Strip See Rx Instructions .Route Qty: 100 0RF Rx Instructions: Check blood sugar before breakfast and bedtime (DME) pen needle, diabetic 32 gauge x 5/32 needle See Rx Instructions .Route Qty: 100 0RF Rx Instructions: Check blood sugar before breakfast and bedtime No Action methazolamide 50 mg tablet 50 mg PO BID valacyclovir 500 mg tablet 500 mg PO DAILY atorvastatin 40 mg tablet 40 mg PO DAILY metformin 1,000 mg tablet 1,000 mg PO BID lisinopril 10 mg tablet 10 mg PO DAILY Levemir FlexTouch U100 Insulin 100 unit/mL (3 mL) insulin pen 10 unit subcut DAILY Rx Instructions: 10 unit subcutaneously triamterene-hydrochlorothiazid 37.5-25 mg tablet 37 tablet PO DAILY latanoprost 0.005 % Drops 1 drp OPHTHALMIC (EYE) DAILY levetiracetam [Keppra] 500 mg Tablet 500 mg PO BID calcium carbonate [Calcium 600] 600 mg calcium (1,500 mg) Tablet 600 mg PO DAILY folic acid 800 mcg Tablet 0.8 mg PO DAILY Ocuvite Tablet 1 tablet PO DAILY melatonin 1 mg Tablet 1 mg PO HS PRN (Reason: insomnia) Centrum 0.4-162-18 mg Tablet 1 tablet PO DAILY brimonidine-timolol 0.2-0.5 % Drops 1 drp EACH EYE Q12H cholecalciferol (vitamin D3) [Vitamin D3] 25 mcg (1,000 unit) Tablet,Chewable 25 mcg PO DAILY Jardiance 25 mg Tablet 25 mg PO DAILY Tylenol 500 mg PO DAILY PRN (Reason: Pain) magnesium 420 mg PO DAILY mecobalamin (vitamin B12) 3,000 mg PO DAILY Follow-up/Referrals: Jose Mckoy MD [Primary Care Provider] - Kee Arias MD [Physician] - Time of Disposition: 10:20
[2024-04-23 10:03] LABS: Glucose Point of Care 391 mg/dl (65-105)
== END 2024-04-23 10:26 | disposition home or self-care (01) ==
PROVIDERS: Emergency Provider Nurse Practitioner Family; PCP Emergency Medicine
DX: E11.9 Type 2 diabetes mellitus without complications (principal); E11.65 Type 2 diabetes mellitus with hyperglycemia; Z79.4 Long term (current) use of insulin; Z79.84 Long term (current) use of oral hypoglycemic drugs; I10 Essential (primary) hypertension; Z85.46 Personal history of malignant neoplasm of prostate; Z90.79 Acquired absence of other genital organ(s)
CPT/HCPCS: 82948; 99212; G0463

== ENCOUNTER 2024-09-05 11:26 | Emergency (ER) | payer MEDICARE, SELFPAY ==
[2024-09-05 11:37] VITALS: BP 117/64; PULSE 100; RESP 16; TEMP 36.8; O2SAT 97
--- NOTE | 2024-09-05 11:40 | ED_ITS ---
HPI - Wound/Laceration General Chief Complaint: Wound/Laceration Stated Complaint: SKIN TEARS ON BOTH ARMS Time Seen by Provider: 09/05/24 11:40 Source: patient Mode of arrival: ambulatory Limitations: no limitations History of Present Illness HPI narrative: 74-year-old male presents with Steri-Strips to bilateral forearms. Patient tripped and fell in bathroom and put arms out to catch himself. Did not hit his head. Was able to get up on his own. No other injuries. Denies neck and back pain. All systems reviewed and negative except as noted above. Related Data Home Medications ?Medication ?Instructions ?Recorded ?Confirmed ?Last Taken ?Type Tylenol 500 mg PO DAILY PRN Pain 11/29/22 09/05/24 Unknown History cholecalciferol (vitamin D3) 25 25 mcg PO DAILY 11/29/22 09/05/24 Unknown History mcg (1,000 unit) chewable tablet (Vitamin D3) magnesium 420 mg PO DAILY 11/29/22 09/05/24 Unknown History mecobalamin (vitamin B12) 3,000 mg PO DAILY 11/29/22 09/05/24 Unknown History yoeoostk-ppd-OW 0.4 mg-calcium 162 1 tablet PO DAILY 11/29/22 09/05/24 Unknown History mg-iron 18 nv-gramfdw-wzcdwf tablet Allergies Allergy/AdvReac Type Severity Reaction Status Date / Time shellfish derived AdvReac Mild Diarrhea Verified 09/05/24 11:27 Review of Systems Review of Systems: CONSTITUTIONAL: Denies fever, chills, or sweats. EYES: Denies visual changes, redness, or discharge. ENT: Denies rhinorrhea, congestion, sore throat, or otalgia. CARDIOVASCULAR: Denies chest pain, palpitations, or edema. RESPIRATORY: Denies cough or dyspnea. GASTROINTESTINAL: Denies abdominal pain, nausea, vomiting, or diarrhea. GENITOURINARY: Denies dysuria or hematuria. SKIN: Denies rash or itching. Reports skin tears to bilateral forearms MUSCULOSKELETAL: Denies back pain, joint pain, or myalgia. NEUROLOGIC: Denies headache, numbness, or weakness. PSYCHIATRIC: Denies anxiety or depression. All other systems reviewed are negative, except as documented in HPI. [facility] Past Medical History Medical History Abnormal CT scan, colon History of prostate cancer Diabetes type 2, controlled Hypertension Hyperlipidemia Surgical History Surgical History History of prostatectomy 2017 Social History Social History Living arrangements: alone Gender identity (if verbalized by the patient): Male Spiritual care concerns: No Comments At time of signature, agree with nursing past medical, surgical, social and family history. There is no relevant family history pertinent to the presenting complaint. Exam Narrative: GENERAL: This is a well-nourished, well-developed patient, in no apparent distress. HEAD: normocephalic, atraumatic. EYES: PERRL. Sclera clear/white. Vision is grossly intact. EARS: External ears normal NOSE: External nose normal NECK: Neck supple, non-tender without lymphadenopathy, masses or thyromegaly. CARDIOVASCULAR: Regular rate and rhythm without murmurs, gallops, or rubs. RESPIRATORY: Clear to auscultation. Breath sounds equal bilaterally. No wheezes, rales, or rhonchi. SKIN: warm, Dry, intact with no suspicious lesions or rash, good texture and turgor. skin tear to L forearm anterior lateral, ISTAP type I 2x1.5cm, skin tear to R forearm, anterior lateral, ISTAP type II, approx. 8x4cm NEURO: awake, alert, and oriented to person, place and time. There were no obvious focal neurologic abnormalities. EXTREMITIES: No joint tenderness, effusion, or edema noted. Course Course Level of Care: Express Care Visit Vital Signs Vital signs: Vital Signs Temperature 36.8 C 09/05/24 11:37 Pulse Rate 100 09/05/24 11:37 Respiratory Rate 16 09/05/24 11:37 Blood Pressure 117/64 09/05/24 11:37 Pulse Oximetry 97 09/05/24 11:37 Temperature 36.8 C 09/05/24 11:37 Pulse Rate 100 09/05/24 11:37 Respiratory Rate 16 09/05/24 11:37 Blood Pressure 117/64 09/05/24 11:37 Pulse Oximetry 97 09/05/24 11:37 reviewed Procedures Laceration Laceration 1: Date: 09/05/24 Time: 11:45 Site: upper extremity (L forearm) Side (If applicable): left (2 x 1.5) Description: irregular (skin tear) and clean Local Anesthetic: none ====== Skin Level ====== Skin layer closed with: steri strips ====== Subcutaneous Layer ====== ====== Muscle Layer ====== ====== Tendon Layer ====== Laceration 2: Date: 09/05/24 Time: 11:45 Site: upper extremity Side (If applicable): right (forearm) Description: irregular (skin tear 8 x 4cm) ====== Skin Level ====== Skin layer closed with: steri strips ====== Subcutaneous Layer ====== ====== Muscle Layer ====== ====== Tendon Layer ====== MDM - Wound/Laceration MDM Narrative Medical decision making narrative: skin tears to bilateral forearms repaired with steri strips. pt educated regarding care for steri strips. He is well appearing, nontoxic. no neuro deficits. ambulatory with steady gait at discharge. Differential Diagnosis Differential diagnosis: Likely laceration, abrasion, avulsion of skin and other (skin tear) Discharge Plan Discharge Clinical Impression: ISTAP type 2 skin tear of right forearm, ISTAP type 1 skin tear of left forearm, Fall on same level Patient Disposition: Home Condition: Stable Instructions: Skin Tear (ED), Skin Adhesive Strips (ED) Additional Instructions: Steri strips were used to repair the skin tears to your forearms. Keep steri strips clean and dry. Cover when showering so they do not get wet. If they become wet, pat dry with towel. Do not apply any ointments or lotions over steri strips. Let steri strips fall off on their own. Do not pull or pick at steri strips. if you have signs of infection such as redness, swelling, pain, drainage your primary care physician. Patient Language: Japanese Prescriptions: No Action Centrum 0.4-162-18 mg Tablet 1 tablet PO DAILY cholecalciferol (vitamin D3) [Vitamin D3] 25 mcg (1,000 unit) Tablet,Chewable 25 mcg PO DAILY Tylenol 500 mg PO DAILY PRN (Reason: Pain) magnesium 420 mg PO DAILY mecobalamin (vitamin B12) 3,000 mg PO DAILY Follow-up/Referrals: PHYSICIAN,SUPERVISOR SH[employer]TLE [employer]PARATION [Primary Care Provider] - Time of Disposition: 12:08
== END 2024-09-05 12:12 | disposition home or self-care (01) ==
PROVIDERS: Emergency Provider Nurse Practitioner Family
DX: S51.812A Laceration without foreign body of left forearm, initial encounter (principal); S51.811A Laceration without foreign body of right forearm, initial encounter; W01.0XXA Fall on same level from slipping, tripping and stumbling without subsequent striking against object, initial encounter; E11.9 Type 2 diabetes mellitus without complications; I10 Essential (primary) hypertension; E78.5 Hyperlipidemia, unspecified; Z85.46 Personal history of malignant neoplasm of prostate; Z90.79 Acquired absence of other genital organ(s)
CPT/HCPCS: 99212; G0463

== ENCOUNTER 2024-09-09 19:49 | Emergency (ER) | payer MEDICARE, SELFPAY ==
--- NOTE | 2024-09-09 19:58 | ED.SKABFB ---
HPI - Skin/Abscess/Foreign Bdy General Chief complaint: Skin/Abscess/Foreign Body Stated complaint: Skin tear r arm Time Seen by Provider: 09/09/24 19:50 Source: patient Mode of arrival: ambulatory Limitations: no limitations History of Present Illness HPI narrative: Bernardino is a 74-year-old male patient presenting to the clinic today requesting a dressing change to the right forearm. He was seen on September 05 for a skin tear to the right forearm and Steri-Strips were applied. Has a telfa that has dried blood stuck to the right forearm. Patient thought that it was 8am instead of 8PM. Patient reoriented and is able to tell me who the president is, where he is at, and the approximate date. Denies any other concerns. Offered further evaluation- such as blood sugar check and urine testing and he declined at this time. Related Data Home Medications ?Medication ?Instructions ?Recorded ?Confirmed ?Last Taken ?Type Tylenol 500 mg PO DAILY PRN Pain 11/29/22 09/05/24 Unknown History cholecalciferol (vitamin D3) 25 25 mcg PO DAILY 11/29/22 09/05/24 Unknown History mcg (1,000 unit) chewable tablet (Vitamin D3) magnesium 420 mg PO DAILY 11/29/22 09/05/24 Unknown History mecobalamin (vitamin B12) 3,000 mg PO DAILY 11/29/22 09/05/24 Unknown History luvhwzts-bax-TE 0.4 mg-calcium 162 1 tablet PO DAILY 11/29/22 09/05/24 Unknown History mg-iron 18 lw-lkkfiws-oskbsi tablet Allergies Allergy/AdvReac Type Severity Reaction Status Date / Time shellfish derived AdvReac Mild Diarrhea Verified 09/09/24 19:53 Review of Systems Review of Systems: Pertinent positives per HPI. Patient denies any fever, chills, rash, headache, visual changes, dizziness, cough, runny nose, sore throat, shortness of breath, chest pain, palpitations, nausea, vomiting, diarrhea, constipation, abdominal pain, or any urinary issues. [facility] Past Medical History Medical History Abnormal CT scan, colon History of prostate cancer Diabetes type 2, controlled Hypertension Hyperlipidemia Surgical History Surgical History History of prostatectomy 2017 Social History Social History Living arrangements: alone Gender identity (if verbalized by the patient): Male Spiritual care concerns: No Comments At the time of my signature, I reviewed and agree with the nursing past medical, surgical, social, and family history. There is no relevant family history pertinent to the patient complaint. Exam Narrative: General: Well-developed, well nourished, in no apparent distress Head: Normocephalic, atraumatic. Cardio: Regular rate and rhythm, s1 and s2 normal, no murmur appreciated. Resp: Clear to auscultation bilaterally, no rhonchi, rales, wheezing or rubs. Integumentary: [place], warm, and dry, healing skin tears to the right forearm-dressing was removed and new dressing with Telfa and Kerlix was applied Course Course Emergency Course: Portions of this record may have been created with voice recognition software. Level of Care: Express Care Visit Vital Signs Vital signs: Vital signs reviewed MDM - Skin/Abscess/Foreign Bdy MDM Narrative Medical decision making narrative: At the time of visit patient is resting comfortably on the exam table. Patient appears to be nontoxic. requesting a dressing change to the right forearm. He was seen on September 05 for a skin tear to the right forearm and Steri-Strips were applied. Has a telfa that has dried blood stuck to the right forearm. Patient thought that it was 8AM instead of 8PM and came in to be seen at [facility]. Patient reoriented to time and is able to tell me who the president is, where he is at, and the date was 09/10/24. States, I am retired and I don't keep track of all of that. Denies any other concerns. Offered further evaluation- such as blood sugar check and urine testing and he declined at this time. Plan: Patient here for encounter for wound check/dressing change. Wound was cleansed with normal saline and telfa dressing was reapplied. Dressing changed in the clinic today. Supportive measures were discussed with the patient and they voiced understanding discharge instructions and agrees to treatment plan. Return precautions reviewed Differential Diagnosis Differential diagnosis: Likely abscess of skin or subcutaneous tissue, cellulitis and other (Encounter for wound check/dressing change) Discharge Plan Discharge Clinical Impression: Encounter for change or removal of nonsurgical wound dressing Patient Disposition: Home Condition: Stable Instructions: Antibiotic Form, Skin Tear (ED), Skin Adhesive Strips (ED) Additional Instructions: Dressing was removed from the right forearm in the clinic today Keep area clean and dry Keep Steri-Strips in place and let them fall off on their own Complete daily dressing changes Follow-up for a wound check with your primary care doctor in 2-3 days Call tomorrow to schedule a primary care provider appointment Patient Language: Nepali Prescriptions: No Action Centrum 0.4-162-18 mg Tablet 1 tablet PO DAILY cholecalciferol (vitamin D3) [Vitamin D3] 25 mcg (1,000 unit) Tablet,Chewable 25 mcg PO DAILY Tylenol 500 mg PO DAILY PRN (Reason: Pain) magnesium 420 mg PO DAILY mecobalamin (vitamin B12) 3,000 mg PO DAILY Follow-up/Referrals: PHYSICIAN,TRAVEL SERVICE CONSULTANT [Primary Care Provider] - Time of Disposition: 20:03 Quality NIHSS Nursing Documentation ED NIHSS nursing documentation: reviewed/agree
[2024-09-09 20:10] VITALS: BP 151/75; PULSE 97; RESP 16; TEMP 36.7; O2SAT 99
== END 2024-09-09 20:15 | disposition home or self-care (01) ==
PROVIDERS: Emergency Provider Nurse Practitioner Family
DX: Z48.00 Encounter for change or removal of nonsurgical wound dressing (principal); E11.9 Type 2 diabetes mellitus without complications; I10 Essential (primary) hypertension; E78.5 Hyperlipidemia, unspecified; Z85.46 Personal history of malignant neoplasm of prostate; Z90.79 Acquired absence of other genital organ(s)
CPT/HCPCS: 99211; G0463

== ENCOUNTER 2024-09-27 09:56 | Outpatient (CLI) | payer MEDICARE, SELFPAY ==
--- NOTE | ~2024-09-27 | US_ITS ---
EXAMINATION: US venous doppler [facility] DATE: 09/27/2024 11:57 INDICATION: Swelling and pain TECHNIQUE: Grayscale ultrasound images without and with compression and Doppler ultrasound images of the left lower extremity veins were obtained. COMPARISON: None. FINDINGS: The visualized portions of left common femoral vein, profunda (deep) femoral vein, femoral vein, popl iteal vein, peroneal veins, posterior tibial veins, and greater saphenous vein outflow are patent. IMPRESSION: 1. No deep venous thrombosis. Reviewed, dictated and finalized at location A.
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
--- OUTSIDE RECORDS SUMMARY | 2024-09-27 10:10 | XMS_ITS | Clinical Summary ---
Author Organization [facility] Address [address] [place] [address] Care Team Providers Care Social Work Professor Name Role Phone Unavailable Primary Care Provider Unavailabl e Source Comments [facility],non-owned Affiliates and Associated Physician Practices is amultiple site organization consisting of ambulatory clinics and hospital sitesin [place], [place], [place] and [place]. This disclosure is being madepursuant to the Care Everywhere program and may not contain all information available regarding this patient. Last updated 17.[facility] Social History Tobacco Use Types Packs/Day Years Used Date Smoking Tobacco: Never Assessed Sex and Gender Information Value Date Recorded Sex Assigned at Not on file Legal Sex Male 8:40 AM CDT Gender Identity Not on file Sexual Orientation Not on file Plan of Treatment Health Maintenance Due Date Last Done Comments COLOGUARD (AGES 45-75) - COL ON CA SCREENING 1951 COLON MONITORING 1951 COLONOSCOPY - COLON CA SCREENING 1951 CT COLONOGRAPHY - COLON CA SCREENING 1950 Colorectal Cancer Screening 1950 FIT - COLON CA SCREENING 1950 FLEX SIG - COLON CA SCREENING 1950 LIPID TESTING 1950 MEDICARE AWV 12 MONTHS 1950 HEPATITIS C SCREENING 01/04/1969 DTAP/TDAP/TD VACCINES (1 - Tdap) 1970 PNEUMOCOCCAL VACCINE 50+ (1 of 1 - PCV) 2001 ZOSTER VACCINE (1 of 2) 2001 COVID-19 VACCINE ( - 2023-2 5 season) 2023 DEPRESSION SCREENING 02/15/2024 INFLUENZA VACCINE (#1) 2024 Respiratory Syncytial Virus (RSV) Vaccine Pt: or over 60 yrs (1 - 1-dose 75+ series) 2026 HEPATITIS B VACCINE Aged Out No longe r eligible based on patient's age to complete this topic HIB VACCINE Aged Out No longer eligi ble based on patient's age to complete this topic HPV VACCINE Aged Out No longer eligi ble based on patient's age to complete this topic MENINGOCOCCAL (Group B) VACC INE SHARED DECISION-MAKING Aged Out No longer eligibl e based on patient's age to complete this topic MENINGOCOCCAL GROUPS A/C/Y/W VACCINE Aged Out No longer eligible b ased on patient's age to complete this topic Insurance MEDICARE [facility]
--- OUTSIDE RECORDS SUMMARY | 2024-09-27 10:10 | XMS_ITS | Clinical Summary ---
Author Organization [facility] Address [address] [place] [address] Care Team Providers Care First Aid Nurse Name Role Phone MayorgaGareth corea OD Unavailable + Mary Kincaid MD Unavailable [phone] Evelio Johnston MD Unavailable Juanjo Villarreal MD Unavailable [phone] Kee Arias MD Primary Care Provider Allergies Active Allergy Reactions Criticality Noted Date Comments Shellfish Derived Diarrhea Low Medications brimonidine-timolo l (COMBIGAN) 0.2-0.5 % ophthalmic solution instill 1 drop by ophthalmic route every 12 hours into affected eye(s) 0 06/14/19 12 Active Additional Information Patient taking differently: 1 drop right eye 2 times daily, Reported on 12/22/2022 cholecalciferol (VITAMIN D3) 1,000 unit capsule once a day 0 08/23/19 12 Active multivitamin tablet tablet take 1 tablet by oral route every day with food 0 08/23/19 12 Active latanoprost (XALATAN) 0.005 % ophthalmic solution INSTILL 1 DROP INTO EACH EYE ONCE DAILY AT NIGHT DIRECTED 06/27/19 21 Active ascorbic acid (VITAMIN C) 100 mg tablet Take 1 tablet (100 mg total) by mouth daily Active lancets (Cracktouch ultrasoft) miscIndications:Ty pe 2 diabetes mellitus with other specified complication, without long-term current use of insulin Monitor FSBS TID 300 each 3 05/19/19 23 Active blood glucose diagnostic (FinarioTouch Verio test strips) stripIndications:T ype 2 diabetes mellitus with other specified complication, without long-term current use of insulin Monitor FSBS TID 300 strip 3 05/19/19 23 Active OneTouch Verio Reflect Meter miscIndications:Ty pe 2 diabetes mellitus with other specified complication, without long-term current use of insulin USE TO MONTIOR FSBS THREE TIMES A DAY 1 each 08/13/19 23 Active valACYclovir (VALTREX) 500 mg tablet Take 1 tablet (500 mg total) by mouth daily 07/24/19 23 Active pen needle, diabetic (Unifine Pentips) 32 gauge x 5/32 needleIndications: Type 2 diabetes mellitus with other specified complication, with long-term current use of insulin Use once daily with insulin pen 100 each 3 10/01/19 23 Active acetaminophen (TYLENOL) 500 mg tablet Take 2 tablets (1,000 mg total) by mouth every 6 (six) hours as needed 10/10/19 23 Active brimonidine (ALPHAGAN) 0.2 % ophthalmic solution Administer 1 drop into affected eye(s) every 12 (twelve) hours Active Jardiance 25 mg tabletIndications: Type 2 diabetes mellitus with other specified complication, with long-term current use of insulin Take 1 tablet by mouth once daily 90 tablet 02/25/19 24 Active lisinopriL (PRINIVIL,ZESTRIL) 10 mg tabletIndications: Essential hypertension Take 1 tablet by mouth once daily 90 tablet 02/25/19 24 Active atorvastatin (LIPITOR) 40 mg tabletIndications: Hyperlipidemia, unspecified hyperlipidemia type Take 1 tablet by mouth once daily 90 tablet 02/25/19 24 Active metFORMIN (GLUCOPHAGE) 1,000 mg tabletIndications: Type 2 diabetes mellitus without complication, without long-term current use of insulin (HCC) TAKE 1 TABLET BY MOUTH TWICE DAILY WITH MEALS 180 tablet 03/31/19 24 Active LANTUS 100 unit/mL (3 mL) pen for injectionIndicatio ns:Type 2 diabetes mellitus with other specified complication, without long-term current use of insulin INJECT 10 UNITS SUBCUTANEOUSLY ONCE DAILY 15 mL 05/09/19 24 Active levETIRAcetam (KEPPRA) 500 mg tablet Take 1 tablet by mouth twice daily 60 tablet 11/21/19 24 Active Active Problems Problem Noted Date Diagnosed Date Cerebral gliosis 11/18/2022 Assessment & Plan (11/18/2022 7:52 AM CDT): Right frontal cortical based lesion, unchanged since October 2014. Recently seen on outside head CT and brain MRI. Neurology saw patient and felt this was benign given technical support consultant stability. Prominent ileocecal valve 11/18/2022 Assessment & Plan (11/18/2022 2:49 PM CDT): Recent PET scab at [facility] noted suspicious uptake in region of ileocecal [...] degenerative disc and joint disease as detailed [id number] above, with associated severe spinal canal stenosis [...] T2, N0, cM0, PSA: 10 to 19, Scott 7 - Signed by Evelio Johnston MD on 12/16/2020 Assessment & Plan (05/18/2022 10:44 AM CDT): He recently completed XRT. PSA undetectable. Followed by [facility]. Assessment & Plan (05/13/2021 10:41 AM CDT): [...] would like to re-establish with Urology at [facility]. Glaucoma 07/26/2013 Overview (05/20/2016): Glaucoma Hyperlipidemia [...] insulin. 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 Continue current [...] be reassessed at the next regular appointment. Immunizations Immunization Administration Dates Next Due Influenza, Quadrivalent, Hig h Dose, Preservative Free, Intrr 11/18/2022,11/14/2020 Influenza, Trivalent, Preser vative Free, Intramuscular 05/17/2016,11/14/2014,10/15/2014 Influenza, Unspecified 11/12/2021,11/14/2020 Pfizer SARS-CoV-2 Monovalent Vaccination (12+ Yrs) PURPLE 01/10/2021,05/08/2020,04/17/2020 Pneumococcal Conjugate PCV 13 11/14/2020 Pneumococcal Conjugate, Unspecified 11/14/2020 Tdap 10/03/2022,05/14/2021 ZOSTER Recombinant 11/03/2020,08/08/2020 Surgical History Surgery Date Site/Laterality Comments INGUINAL HERNIA REPAIR Left PROSTATECTOMY 02/15/2016 - 02/13/2017 Medical History Medical History Date Comments Erectile dysfunction Glaucoma Anxiety Prostate cancer (HCC) Diverticulosis Family History Medical History Relation Name Comments Diabetes type II Brother Alcohol abuse Father Diabetes Father Diabetes type II Mother ESRD Mother Relation Name Status Comments Brother Father Mother Other brother Alive Social History Tobacco Use Types Packs/Day Years Used Date Smoking Tobacco: Never Smokeless Tobacco: Never Tobacco Cessation:Counseling Given: No Alcohol Use Standard Drinks/Week Comments Yes 0 (1 standard drink = 0.6 oz pur e alcohol) AUDIT-C Answer Date Recorded Q1: How often do you have a drink containing alc ohol? 2-3 times a week 01/03/2023 Q2: How many drinks containi ng alcohol do you have on a typical day when you are drinking? 1 or 2 01/03/2023 Q3: How often do you have si x or more drinks on one occasion? 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 Gender Identity Male 12/18/2020 5:15 AM CDT Sexual Orientation Hauser 08/02/2020 3: 10 PM CDT Obstetrics History Last Filed Vital Signs Vital Sign Reading Time Taken Comments Blood Pressure 109/68 06/29/2023 10:17 AM CDT Pulse 86 06/29/2023 10:17 AM CDT Temperature 36.2 C (97.2 F) 06/29/2023 10:15 AM CDT Respiratory Rate 18 06/29/2023 10:17 AM CDT Oxygen Saturation 98% 06/29/2023 10:17 AM CDT Inhaled Oxygen Concentration - - Weight 74 kg (163 lb 3.2 oz) 06/29/2023 10:15 AM CDT Height 176.5 cm (5' 9.49) 06/29/2023 10:15 AM C DT Body Mass Index 23.76 06/29/2023 10:15 AM CDT Plan of Treatment Scheduled Procedures Name Priority Associated Diagnoses Date/Ti me COLONOSCOPY Prominent ileocecal valve Health Maintenance Due Date Last Done Comments Dilated Eye Exam 1950 Hepatitis B Screening 1968 Pneumococcal vaccine 65+ (2 of 2 - PPSV23, PCV20, or PCV21) 2021 11/14/2020, 11/14/2020 Hemoglobin A1C 02/23/2023 08/23/2022, 05/2022, 02/23/2022, Additional history exists Albumin Creatinine Ratio, Urine 05/19/2023 , 05/20/2020 Depression Screening 05/19/2023 05/18/2022, 05/13/2021, 05/06/2020 Fall Risk Assessment 05/19/2023 05/18/2022, 05/13/2021, 05/06/2020 Foot Exam 05/19/2023 05/18/2022, 04/16, 05/06/2020 Lipid Panel 05/19/2023 05/18/2022, 040 07/2020, 05/15/2014, Additional history exists Well Visit 65+ 05/19/2023 05/18/2022, 04/16, 05/06/2020 Covid-19 Vaccine (2023-2 5 season) 2023 01/10/2021, 05/08/2020, 04/17/2020 eGFR 06/28/2024 06/29/2023, 1109/2022, 06/09/2022, Additional history exists Influenza Vaccine (#1) 2024 , 11/12/2021, 11/14/2020, Additional history exists DTaP/Tdap/Td Vaccine (3 - Td or Tdap) 10/03/2032 10/03/2022, 05/14/2021 Colon Cancer Screening-Colonoscopy 12/03/2032 12/03/2022, 04/19/2019 Hepatitis C Screening Completed 05/20/2020 Zoster Vaccine Completed 11/03/2020, 08/08/2020 Prostate Cancer Screening-PSA Discontinued , 05/11/2021, 09/22/2020, Additional history exists Abdominal Aortic Aneurysm (A AA) Screen Completed 10/05/2022, 07/03/2020, 03/08/2016 Colon Cancer Screening-CT Colonography Discontinued 12/03/2022, 04/19/2019 Colon Cancer Screening-DNA Stool Discontinued 12/04/19, 04/19/2019 Colon Cancer Screening-FIT Discontinued 12/03/2022, Colon Cancer Screening-Sigmoidoscopy Discontinued 12/03/2022, 04/19/2019 Procedures Procedure Name Priority Date/Time Associated Diagnosis Comments EGFR Routine 06/29/2023 10:02 AM CDT Macrocytic anemia HM COLONOSCOPY Routine 12/03/2022 POCT HEMOGLOBIN A1C Routine 08/23/2022 1:20 PM CDT Type 2 diabetes mellitus with other specified complication, with long-term current use of insulin (HCC) LIPID PANEL Routine 05/18/2022 11:15 AM CDT Primary hypertension Type 2 diabetes mellitus with other specified complication, without long-term current use of insulin (HCC) Pure hypercholesterolemia ALBUMIN CREATININE RATIO, URINE Routine 05/18/2022 11:15 AM CDT Type 2 diabetes mellitus with other specified complication, without long-term current use of insulin (HCC) PSA DIAGNOSTIC Routine 09/02/2021 10:46 AM CDT Malignant neoplasm of prostate (HCC) CT ABDOMEN PELVIS W CONTRAST Schedule Routine, Read Routine (OP Routine) 07/03/2020 10:25 AM CDT Malignant neoplasm of prostate (HCC) HEPATITIS C ANTIBODY Routine 05/20/2020 7:37 AM CDT Need for hepatitis C screening test from Last 3 Months or Most Recently Relevant to Health Maintenance Results * eGFR (06/29/2023 10:02 AM CDT) eGFR >90 >=60 mL/min/1. 73 m2 Comment: Interpretive Data Reference Interval Normal >/= 90 mL/min/1.73m2 Mildly decreased* 60 - 89 mL/min/1.73m2 Mildly to moderately decreased 45 - 59 mL/min/1.73m2 Moderately to severely decreased 30 - 44 mL/min/1.73m2 Severely decreased 15 - 29 mL/min/1.73m2 Kidney Failure < 15 mL/min/1.73m2 *Relative to young adult level Estimated glomerular filtration rate is determined by the 2020 CKD-EPI equation recommended by the National Kidney Foundation (A Unifying Approach to GFR Estimation: Recommendations of the NKF-ASK Task Force on Reassessing the Inclusion of Race in Diagnosing Kidney Disease, JASN 2020). The CKD-EPI equation should not be used for patients with unstable renal function and has not been validated in children and those over 70. Current interpretive data was last reviewed 2020. Testing performed by: [facility], [address] [place] [id number] Blood 06/29/2023 10:0 2 AM CDT 06/29/2023 10:04 AM CDT us Mary Kincaid MD LAB BLOOD ORDERABLES Final R esult [facility] [place] [address] * COLONOSCOPY (12/03/2022) Scribed Colonoscopy Normal Impressions Manuel Delgado MD - 12/03/2022 Benign. Diverticulosis and hemorroids us Historical Provider HEALTH MAINTENANCE Final Result * POCT hemoglobin A1c (08/23/2022 1:20 PM CDT) Hemoglobin A1C, POC 6.0 % Blood 08/23/2022 1:20 PM CDT Manuel Delgado MD POINT OF CARE TEST ORDERA BLES Final Result * Albumin Creatinine Ratio, Urine (05/18/2022 11:15 AM CDT) Albumin Ur <12.0 mg/L [facility] Comment: Interpretive Data No reference range established. Current interpretive data was last revised 2018. Creatinine Ur 117.8 mg/dL [facility] Comment: Interpretive Data No reference range established. Current interpretive data was last revised 2018. Albumin Creatinine Ratio, Ur <10 1 - 29 mg/g [facility] Urine 05/18/2022 11:1 5 AM CDT 05/18/2022 1:30 PM CDT Manuel Delgado MD LAB URINE ORDERABLES Agnes l Result [facility] [place] [address] * Lipid panel (05/18/2022 11:15 AM CDT) Cholesterol 156 30 - 199 mg/dL [facility] Comment: Interpretive Data Ages < or = 19 years Acceptable: <170 mg/dL Borderline high: 170-199 mg/dL High: >or= 200 mg/dL Ages > or = 20 years Desirable: <200 mg/dL Borderline high: 200-239 mg/dL High: >or= 240 mg/dL Literature References: 1. Expert Panel on Integrated Guidelines for Cardiovascular Health and Risk Reduction in Children and Adolescents. Pediatrics 2011;128:S213 2. NCEP Expert Panel. Circulation 2004;110:227 Current Interpretive Data was last revised on 2017. Triglycerides 101 <=149 mg/dL [facility] Comment: Interpretive Data Ages < or = 9 years Acceptable: <75 mg/dL Borderline high: 75-99 mg/dL High: >or= 100 mg/dL Ages 10 to 20 years Acceptable: <90 mg/dL Borderline high: 90-129 mg/dL High: >or= 130 mg/dL Ages > or = 20 years Desirable: <150 mg/dL Borderline high: 150-199 mg/dL High: 200-499 mg/dL Very high: >or= 499 mg/dL Literature References: 1. Expert Panel on Integrated Guidelines for Cardiovascular Health and Risk Reduction in Children and Adolescents. Pediatrics 2011;128:S213 2. NCEP Expert Panel. Circulation 2004;110:227 Current Interpretive Data was last revised on 2017. HDL 54 >=40 mg/dL [facility] Comment: Interpretive Data Ages < or = 19 years Acceptable: >45 mg/dL Borderline low: 40-45 mg/dL Low: <40 mg/dL Ages > or = 20 years Desirable: >or= 60 mg/dL Low: <40 mg/dL Literature References: 1. Expert Panel on Integrated Guidelines for Cardiovascular Health and Risk Reduction in Children and Adolescents. Pediatrics 2011;128:S213 2. NCEP Expert Panel. Circulation 2004;110:227 Current Interpretive Data was last revised on 2017. LDL, calculated 82 <=129 mg/dL [facility] Comment: Interpretive Data Ages < or = 19 years Acceptable: <110 mg/dL Borderline high: 110-129 mg/dL High: >or= 130 mg/dL Ages > or = 20 years Optimal: <100 mg/dL Near optimal: 100-129 mg/dL Borderline high: 130-159 mg/dL High: >160 mg/dL Literature References: 1. Expert Panel on Integrated Guidelines for Cardiovascular Health and Risk Reduction in Children and Adolescents. Pediatrics 2011;128:S213 2. NCEP Expert Panel. Circulation 2004;110:227 Current Interpretive Data was last revised on 2017. Non-HDL Cholesterol 102 mg/dL [facility] Comment: Interpretive Data Ages < or = 19 years Acceptable: <120 mg/dL Borderline high: 120-144 mg/dL High: >145 mg/dL Ages > or = 20 years When triglycerides are >200 mg/dL, Non-HDL cholesterol is a secondary target of therapy with treatment goals that are 30 mg/dL greater than the LDL cholesterol target. Literature References: 1. Expert Panel on Integrated Guidelines for Cardiovascular Health and Risk Reduction in Children and Adolescents. Pediatrics 2011;128:S213 2. NCEP Expert Panel. Circulation 2004;110:227 Current Interpretive Data was last revised on 2017. Chol/HDL ratio 3 [facility] Blood 05/18/2022 11:1 5 AM CDT 05/18/2022 1:31 PM CDT Manuel Delgado MD LAB BLOOD ORDERABLES Agnes l Result Performing Organization Address City/[facility] Co de Phone Number [facility] [place] [address] * PSA diagnostic (09/02/2021 10:46 AM CDT) PSA-Total <0.01 <=6.20 ng/mL [facility] Comment: Interpretive Data AGE SEX REFERENCE INTERVAL 0 minutes-150 years Female None 0 minutes-49 years Male None 50-59 years Male 0-3.90 60-69 years Male 0-5.40 70-79 years Male 0-6.20 80-150 years Male 0-6.20 The [employer] PSA Total assay procedure was used. Results from different manufacturers or methods may not be comparable. Serial testing should be performed using the same method. Current interpretive data last revised 21. Blood 09/02/2021 10:4 6 AM CDT 09/02/2021 2:19 PM CDT Sharon Hare NP LAB BLOOD ORDERABLES Final Result Performing Organization Address [facility] Co de Phone Number [facility] [id number] [place] [address] * CT Abdomen Pelvis W Contrast (07/03/2020 10:25 AM CDT) Anatomical Region Laterality Modality Body N/A Computed Tomogra phy 07/03/2020 11:5 6 AM CDT Impressions 07/03/2020 1:[address] evidence of metastatic disease in the abdomen or pelvis. Dictated by: Tayler Orr M.D. The radiology attending physician has personally reviewed this study, and had reviewed and/or edited this written report and agrees with it. Electronically signed by: Walt Rhodes M.D. Narrative 07/03/2020 1:28 PM CDT EXAMINATION: Computed tomography of the abdomen and pelvis with intravenous contrast HISTORY: Prostate cancer TECHNIQUE: Transaxial computed tomographic images of the abdomen and pelvis were obtained with intravenous contrast according to the standard protocol after the uneventful administration of 100 mL Opti-Ray 350 intravenous contrast. COMPARISON: 03/08/2016 CT abdomen pelvis FINDINGS: Respiratory motion in the lung bases. No suspicious pulmonary nodules in the visualized lung bases. No pleural effusion or pneumothorax. Visualized heart is of normal size without pericardial effusion. No focal hepatic lesions identified, given patient motion in the upper abdomen. The gallbladder, pancreas, spleen and bilateral adrenal glands are normal. The kidneys enhance symmetrically. No hydronephrosis. The urinary bladder is decompressed. The prostate gland is surgically absent. Postoperative changes of left inguinal hernia. The small and large bowel are normal in course and caliber. Colonic diverticulosis. No bowel obstruction. No free fluid or free air within the abdomen or pelvis. The abdominal aorta is mildly atherosclerotic but nonaneurysmal. No lymphadenopathy within the abdomen or pelvis. No suspicious lytic or blastic osseous lesions. Procedure Note Walt Rhodes MD - 07/03/2020 EXAMINATION: Computed tomography of the abdomen and pelvis with intravenous contrast HISTORY: Prostate cancer TECHNIQUE: Transaxial computed tomographic images of the abdomen and pelvis were obtained with intravenous contrast according to the standard protocol after the uneventful administration of 100 mL Opti-Ray 350 intravenous contrast. COMPARISON: 03/08/2016 CT abdomen pelvis FINDINGS: Respiratory motion in the lung bases. No suspicious pulmonary nodules in the visualized lung bases. No pleural effusion or pneumothorax. Visualized heart is of normal size without pericardial effusion. No focal hepatic lesions identified, given patient motion in the upper abdomen. The gallbladder, pancreas, spleen and bilateral adrenal glands are normal. The kidneys enhance symmetrically. No hydronephrosis. The urinary bladder is decompressed. The prostate gland is surgically absent. Postoperative changes of left inguinal hernia. The small and large bowel are normal in course and caliber. Colonic diverticulosis. No bowel obstruction. No free fluid or free air within the abdomen or pelvis. The abdominal aorta is mildly atherosclerotic but nonaneurysmal. No lymphadenopathy within the abdomen or pelvis. No suspicious lytic or blastic osseous lesions. IMPRESSION: No CT evidence of metastatic disease in the abdomen or pelvis. Dictated by: Tayler Orr M.D. The radiology attending physician has personally reviewed this study, and had reviewed and/or edited this written report and agrees with it. Electronically signed by: Walt Rhodes M.D. us José Miguel Lucas MD IMG CT PROCEDURES Final Resul t * Hepatitis C antibody (05/20/2020 7:37 AM CDT) Hep C Ab NON-REACTI VE NON-REACT STEPHENIE [facility] SIGNAL TO CUT-OFF 0.01 <1.00 [facility] Comment: HCV antibody was non-reactive. There is no laboratory evidence of HCV infection. In most cases, no further action is required. However, if recent HCV exposure is suspected, a test for HCV RNA (test code 09374) is suggested. For additional information please refer to http://education.Orugga.Sitefly/faq/IDH30d3 (This link is being provided for informational/ educational purposes only.) Blood specimen (specimen) 05/20/2020 7:37 AM CDT 05/20/2020 7:38 AM CDT Narrative [facility] - 05/21/2020 12:41 PM CDT FASTING:YES FASTING: YES us Manuel Delgado MD LAB MICROBIOLOGY - GENERA L ORDERABLES Final Result [facility] [id number] [place] [id number] from Last 3 Months or Most Recently Relevant to Health Maintenance Insurance MEDICARE [facility] Member Subscriber Plan / Payer (Ef fective 2020-) Name:Bernardino Sanchez Relation to Subscriber:Self Name:Bernardino Sanchez Payer ID:[id number] Group ID:Not on file Type:COMMERCIAL Address: [address] [place] [id number] MEDICARE [facility] MEDICARE [facility] MEDICARE [facility] Care Teams First Aid Nurse Relationship Specialty Start Date End Date Kee Arias MD [address] [facility] [address] [place] [address] PCP - General Emergency Medicine 05/09/24 Gareth Mayorga OD [address] [place] [address] Optometry 05/13/21 Mary Kincaid MD [address] [place] [address] Medical Oncologist/Skinning Machine Feeder Hematology and Oncology 11/17/21 Evelio Johnston MD [address] [place] [address] Radiation Oncologist Radiation Oncology 05/18/22 Juanjo Villarreal MD [address] [place] [address] Orthopedic Surgery 11/18/22
--- OUTSIDE RECORDS SUMMARY | 2024-09-27 10:10 | XMS_ITS | Encounter Summary ---
Author Organization [facility] Address [address] [place] [address] Care Team Providers Care Hub Inventory Specialist Name Role Phone Unavailable Primary Care Provider Unavailabl e Encounter Details Date Type Department Care Team (Late st Contact Info) Description 05/25/2023 Lab Requisition [facility] - DermPath Lab [address] [place] [address] Nicole Olivo MD [address] [facility] [address] [place] [address] Social History Tobacco Use Types Packs/Day Years Used Date Smoking Tobacco: Never Assessed Sex and Gender Information Value Date Recorded Sex Assigned at Not on file Legal Sex Male 8:40 AM CDT Gender Identity Not on file Sexual Orientation Not on file documented as of this encounter Plan of Treatment Not on file documented as of this encounter Procedures Procedure Name Priority Date/Time Associated Diagnosis Comments DERMATOPATHOLOGY Routine 05/25/2023 8:24 AM CDT documented in this encounter Results * DERMATOPATHOLOGY (05/25/2023 8:24 AM CDT) Case Report Dermatopathology Report Case: [id number] Authorizing Provider: Nicole Olivo MD Collected: 05/25/2023 08:24 AM Ordering Location: [facility] - Received: 05/26/2023 08:10 AM DermPath Lab Pathologist: Kristen Helton MD Specimen: Skin, right lower neck 12:55 PM CDT DERMATOPATHOLOGY LABORATORY Final Diagnosis Specimen A. 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 The specimen consists of a shave biopsy measuring 5x8x1 mm. Jar 0. 12:55 PM CDT DERMATOPATHOLOGY LABORATORY Microscopic Description Specimen A. SKIN, right lower neck: The epidermis shows parakeratosis, full thickness disorderly maturation of keratinocytes, mitoses at different levels, and dyskeratotic cells. 12:55 PM CDT DERMATOPATHOLOGY LABORATORY Disclaimer An external and internal positive and negative controls are appropriate for the histochemical, immunohistochemical and immunofluorescence stain(s) in this case (if any), except where stated explicitly. The performance characteristics of the stain(s) cited in this report were developed and its performance characteristic determined by the Dermatopathology Laboratory at [facility], directed by Dr. Marilyn Trinidad. These tests need not be, and therefore are not, approved by the [place] Food and Drug Administration. The tests are used for clinical purposes. Billing Codes Specimen Charges Stain Charges 58779 1 12:55 PM CDT DERMATOPATHOLOGY LABORATORY Embedded Images 12:55 PM CDT DERMATOPATHOLOGY LABORATORY Pathology/Cytolo gy TISSUE SPECIMEN FROM SKIN / Unknown 05/25/2023 8:24 AM CDT 05/26/2023 8:10 AM CDT Nicole Olivo MD LAB - PATHOLOGY/CYTOLOGY OR DERABLES Final Result DERMATOPATHOLOGY LABORATORY [facility] - Department of Dermatology [address] [place] [address], [facility] [phone] documented in this encounter Visit Diagnoses Not on filedocumented in this encounter
[2024-09-27 10:26] LABS: Hematocrit 32.1 % (42.0-52.0); Hemoglobin 10.5 g/dL (14.0-18.0); Mean Corpuscular HGB Conc 32.7 g/dl (32-36); Mean Corpuscular Hemoglobin 37.6 pg (26-34); Mean Corpuscular Volume 115.1 fl (80-100); Platelet Count Result 298 k/mm3 (150-375); Red Blood Count 2.79 M/mm3 (4.6-6.20); White Blood Count 5.1 K/mm3 (4.5-10.0)
[2024-09-27 10:51] LABS: MALB Creatinine Ratio 74.3 mg/g (0-30)
[2024-09-27 10:56] LABS: Cholesterol 245 mg/dL (0-200); HDL Direct 69 mg/dL; Triglycerides 109 mg/dL (<150)
[2024-09-27 15:05] LABS: Hemoglobin A1C > 14.0 % (<5.7)
[2024-09-27 15:53] LABS: Vitamin B12 902.0 pg/mL (239-931)
== END 2024-09-27 09:57 | disposition home or self-care (01) ==
PROVIDERS: PCP Emergency Medicine; Visit Provider Emergency Medicine
DX: R22.42 Localized swelling, mass and lump, left lower limb (principal); D64.9 Anemia, unspecified; E11.9 Type 2 diabetes mellitus without complications; E78.5 Hyperlipidemia, unspecified; Z85.46 Personal history of malignant neoplasm of prostate
CPT/HCPCS: 36415; 80061; 82043; 82607; 82746; 83036; 85027; 93971

== ENCOUNTER 2024-11-06 06:02 | Emergency (ER) | payer MEDICARE, SELFPAY ==
--- NOTE | ~2024-11-06 | CT_ITS ---
CT HEAD NON-CONTRAST Clinical History: increased confusion,pt going through radiation 4 prostate ca Comparison: CT brain 10/03/2022 Technique: Unenhanced axial images skull base to vertex Coronal, sagittal reformats CT images acquired with automatic exposure control for dose reduction DLP: 605 mGy-cm Findings: Mild atrophy. Right frontal encephalomalacia. Mild white matter changes, typically chronic microvascular ischemic disease. Sulci, ventricles: Unremarkable. No intracerebral hemorrhage. No evidence acute territorial infarct. No mass effect, midline shift. Bony calvarium intact. Visualized paranasal sinuses: Clear. Mastoid air cells: Clear. IMPRESSION: 1. No acute intracranial findings. Reviewed, dictated and finalized at location R.
[2024-11-06 06:03] VITALS: BP 165/78; PULSE 77; RESP 17; TEMP 36.8; O2SAT 100
[2024-11-06 06:09] VITALS: BP 165/78; PULSE 80; PULSE 81; RESP 14; TEMP 36.9; O2SAT 100
--- NOTE | 2024-11-06 06:13 | ECG_ITS ---
Test Date: 2024-11-06 06:15:27 Measurements Intervals [place] Rate: 71 P: 45 MT: 128 QRS: 42 QRSD: 104 T: 46 QT: 399 QTc: 434 Interpretive Statements SINUS RHYTHM NORMAL ELECTROCARDIOGRAM No previous ECG available for comparison Electronically Signed On 11-06-2024 12:31:24 CDT by Ruddy Bai M.D.
[2024-11-06 06:33] VITALS: O2SAT 100
[2024-11-06 06:35] LABS: Hematocrit 31.9 % (42.0-52.0); Hemoglobin 10.6 g/dL (14.0-18.0); Immature Granulocyte Percent A 0.9 % (0-0.5); Lymphocytes Absolute Auto 2.61 K/mm3 (0.9-3.2); Mean Corpuscular HGB Conc 33.2 g/dl (32-36); Mean Corpuscular Hemoglobin 37.9 pg (26-34); Mean Corpuscular Volume 113.9 fl (80-100); Nucleated Red Blood Cells Absolute Auto 0.000 K/mm3 (0.0-0.012); Nucleated Red Blood Cells Perc 0.0 % (0.0-0.2); Platelet Count Result 266 k/mm3 (150-375); Red Blood Count 2.80 M/mm3 (4.6-6.20); White Blood Count 4.5 K/mm3 (4.5-10.0)
[2024-11-06 06:37] LABS: Add Urine Microscopic? NO; Appearance Urine Clear (Clear); Glucose Urine UA 3+ mg/dL (Negative); Leukocyte Esterase Ur Negative LEU/UL (Negative); Nitrate Urine Negative (Negative); Specific Grav Ur 1.043 (1.001-1.035)
[2024-11-06 06:49] LABS: INR 1.0; Prothrombin Time 13.1 Seconds (11.1-14.7)
[2024-11-06 06:50] LABS: Partial Thromboplastin Time 24.0 Seconds (22.3-36.8)
[2024-11-06 07:07] LABS: Alanine Aminotransferase 19 U/L (6-50); Albumin Level 4.1 g/dL (3.5-5.1); Alkaline Phosphatase 97 U/L (38-126); Anion Gap 7 mmol/L (4-12); Aspartate Amino Transferase 26 U/L (17-59); Bilirubin,Total 0.7 mg/dL (0.2-1.3); Blood Urea Nitrogen 19 mg/dL (9-20); Calcium 8.8 mg/dL (8.4-10.2); Carbon Dioxide 25 mmol/L (22-30); Chloride 103 mmol/L (98-107); Estimated CRCL calculation 78 ml/min; Estimated Glomerular Filt Rate > 60; Glucose 400 mg/dL (65-110); Potassium 3.7 mmol/L (3.4-5.0); Sodium 135 mmol/L (137-145); Total Protein 6.7 g/dL (6.3-8.2)
--- NOTE | 2024-11-06 07:12 | PC.NURSE ---
Bedside report given to Marleen RN. No questions for me at this time.
[2024-11-06 07:13] LABS: Macrocytosis 1+ (NORMAL); Schistocytes None Seen
[2024-11-06 07:58] VITALS: BP 140/67; PULSE 60; RESP 12; O2SAT 98
--- NOTE | 2024-11-06 08:07 | ED.GENADULT ---
HPI - General Adult General Chief complaint: Altered Mental Status Stated complaint: altered Time Seen by Provider: 11/06/24 07:03 History of Present Illness HPI narrative: This is a 74-year-old male presenting ED for possible altered mental status. A concerned citizen called the police when the patient was seen going to a laundromat and the early hours of the morning. The patient himself is not sure why they brought him to the emergency department. Patient is A&O x4 although appears to have some mild cognitive deficit. Patient says he has been living out of his car for the last 3 days. Use to rent from someone in [facility] but he felt they continue to make a rent and taking manage him so he moved out. The patient has no physical complaints at this time. He does not have a plan to obtain housing Denies headache, chest pain difficulty breathing abdominal pain urinary symptoms, nausea vomiting diarrhea alcohol or drug use. Related Data Home Medications ?Medication ?Instructions ?Recorded ?Confirmed ?Last Taken ?Type Tylenol 500 mg PO DAILY PRN Pain 11/29/22 09/05/24 Unknown History cholecalciferol (vitamin D3) 25 25 mcg PO DAILY 11/29/22 09/05/24 Unknown History mcg (1,000 unit) chewable tablet (Vitamin D3) magnesium 420 mg PO DAILY 11/29/22 09/05/24 Unknown History mecobalamin (vitamin B12) 3,000 mg PO DAILY 11/29/22 09/05/24 Unknown History oroodhki-kwn-RE 0.4 mg-calcium 162 1 tablet PO DAILY 11/29/22 09/05/24 Unknown History mg-iron 18 ey-asugfvq-qodvik tablet Allergies Allergy/AdvReac Type Severity Reaction Status Date / Time shellfish derived AdvReac Mild Diarrhea Verified 09/09/24 19:53 [facility] Past Medical History Medical History Abnormal CT scan, colon History of prostate cancer Diabetes type 2, controlled Hypertension Hyperlipidemia Surgical History Surgical History History of prostatectomy 2016 Social History Social History Living arrangements: alone Gender identity (if verbalized by the patient): Male Spiritual care concerns: No Exam Narrative: APPEARANCE: No apparent distress. AO x4 Head: atraumatic. EYES: EOMI, NOSE: Atraumatic NECK: Trachea midline RESPIRATORY: No increased rate of breathing CTGAB CARDIOVASCULAR: RRR, +2 peripheral lower extremities ABDOMINAL: Non-distended soft nontender MUSCULOSKELETAl: No obvious deformities NEURO: Alert. Cranial nerves 2-12 grossly intact. Sensation light touch, motor function cerebellar function intact for 4 extremities. Gait exam was normal. SKIN:: Warm, dry. Normal color PSYCHIATRIC: Normal affect Course Vital Signs Vital signs: Vital Signs Temperature 98.2 F 11/06/24 06:03 Pulse Rate 77 11/06/24 06:03 Respiratory Rate 17 11/06/24 06:03 Blood Pressure 165/78 H 11/06/24 06:03 Pulse Oximetry 100 11/06/24 06:03 Oxygen Delivery Room Air 11/06/24 06:03 Temperature 98.4 F 11/06/24 06:09 Pulse Rate 60 11/06/24 07:58 Respiratory Rate 12 11/06/24 07:58 Blood Pressure 140/67 11/06/24 07:58 Pulse Oximetry 98 11/06/24 07:58 Oxygen Delivery Room Air 11/06/24 06:33 Medical Decision Making MDM Narrative Medical decision making narrative: -Course: 74-year-old male presenting to ED for a concerned citizen called police as he was going a laundromat the early hours morning. After speaking with patient he does appear to have some sort of very mild cognitive communication deficit and tends to go off on tangents and is slightly confrontational. Honestly it does not appear pathologic and this may just be his personality vs some very mild dementia? Regardless, his physical exam is unremarkable his neurologic exam without any localizing symptoms. Vital signs stable. Screening lab work was obtained which was significant for hyperglycemia without evidence of DKA/HHS. Patient denies hx of diabetes although on review of the EMR and he has had hyperglycemia on UC visits. I had care coordination him speak with and was provided resources for the housing authority to help him obtain housing. Patient will be discharged. -DDX includes but is not limited to: Dementia, delirium, infection, intracranial hemorrhage, UTI, pneumonia dehydration, diabetes Vital Signs Vital Signs: Vital Signs Temperature 98.2 F 11/06/24 06:03 Pulse Rate 77 11/06/24 06:03 Respiratory Rate 17 11/06/24 06:03 Blood Pressure 165/78 H 11/06/24 06:03 Pulse Oximetry 100 11/06/24 06:03 Oxygen Delivery Room Air 11/06/24 06:03 Temperature 98.4 F 11/06/24 06:09 Pulse Rate 60 11/06/24 07:58 Respiratory Rate 12 11/06/24 07:58 Blood Pressure 140/67 11/06/24 07:58 Pulse Oximetry 98 11/06/24 07:58 Oxygen Delivery Room Air 11/06/24 06:33 Lab Data 11/06/24 06:20 11/06/24 06:20 Labs: Lab Results 11/06/24 11/06/24 Range/Units 06:20 06:22 WBC 4.5 (4.5-10.0) K/mm3 RBC 2.80 L (4.6-6.20) M/mm3 Hgb 10.6 L (14.0-18.0) g/dL Hct 31.9 L (42.0-52.0) % MCV 113.9 H (80-100) fl MCH 37.9 H (26-34) pg MCHC 33.2 (32-36) g/dl RDW 15.4 H (11.5-14.5) % Plt Count 266 (150-375) k/mm3 MPV 10.1 (7.4-10.4) fl Immature Gran % (Auto) 0.9 H (0-0.5) % Neut % (Auto) 31.2 L (45.5-73.1) % Lymph % (Auto) 58.5 H (18.3-44.2) % Hitchcock % (Auto) 7.8 (2.6-8.5) % Eos % (Auto) 0.9 (0-4.4) % Baso % (Auto) 0.7 (0.2-1.2) % Lymph # (Auto) 2.61 (0.9-3.2) K/mm3 Hitchcock # (Auto) 0.4 (0.1-0.6) K/mm3 Eos # (Auto) 0.0 (0-0.3) K/mm3 Baso # (Auto) 0.0 (0.0-0.1) K/mm3 Abs Immat Gran (auto) 0.04 H (0.00-0.031) K/mm3 Absolute Neuts (auto) 1.4 (1.3-6.7) K/mm3 Absolute Nucleated RBC 0.000 (0.0-0.012) K/mm3 Band Neutrophils % Not Reportable Nucleated RBC % 0.0 (0.0-0.2) % Platelet Estimate Adequate (Adequate) Macrocytosis 1+ (NORMAL) Schistocytes None seen PT 13.1 (11.1-14.7) Seconds INR 1.0 APTT 24.0 (22.3-36.8) Seconds Sodium 135 L (137-145) mmol/L Potassium 3.7 (3.4-5.0) mmol/L Chloride 103 (98-107) mmol/L Carbon Dioxide 25 (22-30) mmol/L Anion Gap 7 (4-12) mmol/L BUN 19 D (9-20) mg/dL Creatinine 0.71 (0.7-1.3) mg/dL Estim Creat Clear Calc 78 ml/min Estimated GFR > 60 (59 - ) Glucose 400 H (65-110) mg/dL Calcium 8.8 (8.4-10.2) mg/dL Total Bilirubin 0.7 (0.2-1.3) mg/dL AST 26 (17-59) U/L ALT 19 (6-50) U/L Alkaline Phosphatase 97 (38-126) U/L Total Protein 6.7 (6.3-8.2) g/dL Albumin 4.1 (3.5-5.1) g/dL Urine Color Yellow (Yellow) Urine Appearance Clear (Clear) Urine pH 5.5 (5.0-9.0) Ur Specific Conroy 1.043 H (1.001-1.035) Urine Protein Negative (Negative) mg/dL Urine Glucose (UA) 3+ H (Negative) mg/dL Urine Ketones Trace H (Negative) mg/dL Ur Blood (Man) Negative (Negative) Urine Nitrate Negative (Negative) Urine Bilirubin Negative (Negative) Urine Urobilinogen 0.2 (<2.0) mg/dL Leukocyte Esterase Rfl Negative (Negative) ROCKY/UL Discharge Plan Discharge Clinical Impression: Hyperglycemia Patient Disposition: Home Condition: Stable Instructions: Antibiotic Form Additional Instructions: You were seen in the emergency department. Please call the housing authority to get help with your housing situation. Your glucose was elevated any need to see a primary care physician as you may have developed diabetes. Please follow-up with primary care physician listed below. If you develop dizziness lightheadedness fevers chest pain difficulty breathing or abdominal pain you can return to the ED for re-evaluation. Patient Language: Romansh Prescriptions: No Action Centrum 0.4-162-18 mg Tablet 1 tablet PO DAILY cholecalciferol (vitamin D3) [Vitamin D3] 25 mcg (1,000 unit) Tablet,Chewable 25 mcg PO DAILY Tylenol 500 mg PO DAILY PRN (Reason: Pain) magnesium 420 mg PO DAILY mecobalamin (vitamin B12) 3,000 mg PO DAILY Follow-up/Referrals: Kee Arias MD [Primary Care Provider, Family Practice] - 3 Days Referral Note: Diabetes
[2024-11-06 10:05] VITALS: BP 140/60; PULSE 74; RESP 20; O2SAT 99
== END 2024-11-06 10:07 | disposition home or self-care (01) ==
PROVIDERS: Emergency Medicine; Emergency Provider Emergency Medicine; PCP Emergency Medicine
DX: R73.9 Hyperglycemia, unspecified (principal)
CPT/HCPCS: 36415; 70450; 80053; 81003; 85025; 85610; 85730; 93005; 99284